=== PATIENT | male | born 1990 | race American Indian/Alaskan Native ===

== ENCOUNTER 2021-07-26 14:22 | Inpatient (IN) | payer SELFPAY ==
[2021-07-26] MEDS ORDERED: ACETAMINOPHEN 500 MG TAB PO ONE (15:49)
[2021-07-26] MEDS ORDERED: SODIUM CHLORIDE 0.9% 1000 ML 1,000 ML IV ONE (16:37)
--- NOTE | 2021-07-26 16:45 | Emergency Department Report ---
ED General Adult HPI - General Chief complaint: Nausea/Vomiting/Diarrhea Stated complaint: LOWER BACK PAIN/LACK OF ENERGY/NO APPETTITE Time Seen by Provider: 07/26/21 16:34 Source: patient Mode of arrival: Ambulatory Limitations: No Limitations - History of Present Illness Initial comments: 30-year-old -Malaysian male presents to the emergency room complaining of lower back pain sweats chills decreased appetite nausea but no vomiting since Saturday. Patient was unaware that he had a temperature of 103 that was noticed in triage. Patient denies any past medical history he is not up-to-date on any of his vaccines. Increase sleepiness and increased lack of energy. States he has been having increased urination. Denies any injury. Location: back (lower) Severity scale (0 -10): 6 Consistency: intermittent Associated Symptoms: fever/chills, loss of appetite, nausea/vomiting (No vomiting), weakness, other (Increased urination) Treatments Prior to Arrival: none - Related Data Previous Rx's Medication Instructions Recorded Last Taken Type Cyclobenzaprine [Flexeril] 10 mg PO TID PRN #15 tablet 07/15/15 Unknown Rx traMADoL [Ultram] 50 mg PO Q4HR PRN #20 tablet 07/15/15 Unknown Rx Allergies Allergy/AdvReac Type Severity Reaction Status Date / Time No Known Allergies Allergy Verified 07/26/21 15:44 ED Review of Systems ROS: Stated complaint: LOWER BACK PAIN/LACK OF ENERGY/NO APPETTITE Other details as noted in HPI Comment: All other systems reviewed and negative ED Past Medical Hx - Past Medical History Hx Hypertension: No - Social History Smoking Status: Never Smoker Substance Use Type: None - Medications Home Medications: Home Medications Medication Instructions Recorded Confirmed Last Taken Type Cyclobenzaprine [Flexeril] 10 mg PO TID PRN #15 tablet 07/15/15 Unknown Rx traMADoL [Ultram] 50 mg PO Q4HR PRN #20 tablet 07/15/15 Unknown Rx ED Physical Exam - General Limitations: No Limitations General appearance: alert, in no apparent distress - Head Head exam: Present: atraumatic, normocephalic - Eye Eye exam: Present: normal appearance - ENT ENT exam: Present: mucous membranes moist - Neck Neck exam: Present: normal inspection, full ROM - Respiratory Respiratory exam: Present: normal lung sounds bilaterally. Absent: respiratory distress - Cardiovascular Cardiovascular Exam: Present: tachycardia - GI/Abdominal GI/Abdominal exam: Present: soft. Absent: distended, tenderness - Extremities Exam Extremities exam: Present: normal inspection, full ROM - Back Exam Back exam: Present: full ROM - Neurological Exam Neurological exam: Present: alert, CN II-XII intact, normal gait - Psychiatric Psychiatric exam: Present: normal affect, normal mood - Skin Skin exam: Present: warm, dry, intact, normal color. Absent: rash ED Course Vital Signs 07/26/21 15:41 Temperature 103.0 F H Pulse Rate 122 H Respiratory 16 Rate Blood Pressure 134/86 [Right] O2 Sat by Pulse 100 Oximetry ED Medical Decision Making - Medical Decision Making 30-year-old -Malaysian male presents to the emergency room complaining of lower back pain sweats chills decreased appetite nausea but no vomiting since Saturday. Patient was unaware that he had a temperature of 103 that was noticed in triage. Patient denies any past medical history he is not up-to-date on any of his vaccines. Increase sleepiness and increased lack of energy. States he has been having increased urination. Denies any injury. Sepsis protocol has been initiated Critical care attestation.: If time is entered above; I have spent that time in minutes in the direct care of this critically ill patient, excluding procedure time. ED Disposition Condition: Stable
--- NOTE | 2021-07-26 17:08 | XRay Report ---
LUMBAR SPINE 3 VIEWS INDICATION / CLINICAL INFORMATION: lower back pain, fever. COMPARISON: None available. FINDINGS: BONES / JOINT(S): No acute fracture or subluxation. No other significant abnormality. SOFT TISSUES: No significant abnormality. ADDITIONAL FINDINGS: None. IMPRESSION: 1. No acute findings. Signer Name: Prabhu Junior MD Signed: 07/26/2021 5:04 PM Workstation Name: [id number]
--- NOTE | 2021-07-26 17:22 | Emergency Department Report ---
ED General Adult HPI - General Chief complaint: Nausea/Vomiting/Diarrhea Stated complaint: LOWER BACK PAIN/LACK OF ENERGY/NO APPETTITE Time Seen by Provider: 07/26/21 16:34 Source: patient Mode of arrival: Ambulatory Limitations: No Limitations - History of Present Illness Initial comments: patient presents with complaints of fever x 1 day. Endorses bilateral low back pain, mild cough, mild rhinorrhea, decreased appetite and fatigue. Denies nausea, vomiting, diarrhea, dysuria, frequency, urgency. Patient has a hx of nephrolithiasis and has never been diagnosed with urethral strictures. Location: back (lower) Severity scale (0 -10): 6 Associated Symptoms: fever/chills, loss of appetite, nausea/vomiting (No vomiting), weakness, other (Increased urination) Treatments Prior to Arrival: none - Related Data Previous Rx's Medication Instructions Recorded Last Taken Type Cyclobenzaprine [Flexeril] 10 mg PO TID PRN #15 tablet 07/15/15 Unknown Rx traMADoL [Ultram] 50 mg PO Q4HR PRN #20 tablet 07/15/15 Unknown Rx Allergies Allergy/AdvReac Type Severity Reaction Status Date / Time No Known Allergies Allergy Verified 07/26/21 15:44 ED Review of Systems ROS: Stated complaint: LOWER BACK PAIN/LACK OF ENERGY/NO APPETTITE Other details as noted in HPI Comment: All other systems reviewed and negative Skin: denies: rash Neurological: other (denies neck stiffness) ED Past Medical Hx - Past Medical History Hx Hypertension: No - Social History Smoking Status: Never Smoker Substance Use Type: None - Medications Home Medications: Home Medications Medication Instructions Recorded Confirmed Last Taken Type Cyclobenzaprine [Flexeril] 10 mg PO TID PRN #15 tablet 07/15/15 Unknown Rx traMADoL [Ultram] 50 mg PO Q4HR PRN #20 tablet 07/15/15 Unknown Rx ED Physical Exam - General Limitations: No Limitations General appearance: alert, in no apparent distress - Head Head exam: Present: atraumatic, normocephalic - Eye Eye exam: Present: PERRL, EOMI - ENT ENT exam: Present: mucous membranes moist, other (airway patent) - Neck Neck exam: Present: other (supple; no JVD) - Respiratory Respiratory exam: Present: other (good air entry, nml I:E CTAB, no use of ARAVIND) - Cardiovascular Cardiovascular Exam: Present: regular rate. Absent: rubs, gallop - GI/Abdominal GI/Abdominal exam: Present: other (soft; non tender; non distended; normal BS) - Extremities Exam Extremities exam: Present: full ROM. Absent: tenderness - Back Exam Back exam: Present: full ROM, CVA tenderness (R), CVA tenderness (L). Absent: vertebral tenderness - Neurological Exam Neurological exam: Present: alert, oriented X3, CN II-XII intact. Absent: motor sensory deficit - Skin Skin exam: Present: warm, normal color ED Course Vital Signs 07/26/21 07/26/21 07/26/21 15:41 19:25 21:26 Temperature 103.0 F H 100.6 F H Pulse Rate 122 H 116 H Respiratory 16 18 Rate Blood Pressure 134/86 142/87 [Right] O2 Sat by Pulse 100 100 Oximetry ED Medical Decision Making - Lab Data Result diagrams: 07/26/21 17:05 07/26/21 17:05 Laboratory Tests 07/26/21 07/26/21 07/26/21 17:05 17:05 17:05 WBC 20.2 H RBC 4.78 Hgb 14.4 Hct 43.0 MCV 90 MCH 30 MCHC 34 RDW 13.1 L Plt Count 246 Add Manual Diff Complete Total Counted 100 Seg Neuts % (Manual) 75.0 H Band Neutrophils % 0 Lymphocytes % (Manual) 10.0 L Reactive Lymphs % (Man) 0 Monocytes % (Manual) 15.0 H Eosinophils % (Manual) 0 Basophils % (Manual) 0 Metamyelocytes % 0 Myelocytes % 0 Promyelocytes % 0 Blast Cells % 0 Nucleated RBC % Not Reportable Seg Neutrophils # Man 15.2 H Band Neutrophils # 0.0 Lymphocytes # (Manual) 2.0 Abs React Lymphs (Man) 0.0 Monocytes # (Manual) 3.0 H Eosinophils # (Manual) 0.0 Basophils # (Manual) 0.0 Metamyelocytes # 0.0 Myelocytes # 0.0 Promyelocytes # 0.0 Blast Cells # 0.0 WBC Morphology Not Reportable Hypersegmented Neuts Not Reportable Hyposegmented Neuts Not Reportable Hypogranular Neuts Not Reportable Smudge Cells Not Reportable Toxic Granulation Not Reportable Toxic Vacuolation Not Reportable Dohle Bodies Not Reportable Pelger-Huet Anomaly Not Reportable Dinora Rods Not Reportable Platelet Estimate Not Reportable Clumped Platelets Not Reportable Plt Clumps, EDTA Not Reportable Large Platelets Not Reportable Giant Platelets Not Reportable Platelet Satelliting Not Reportable Plt Morphology Comment Not Reportable RBC Morphology Normal Dimorphic RBCs Not Reportable Polychromasia Not Reportable Hypochromasia Not Reportable Poikilocytosis Not Reportable Anisocytosis Not Reportable Microcytosis Not Reportable Macrocytosis Not Reportable Spherocytes Not Reportable Pappenheimer Bodies Not Reportable Sickle Cells Not Reportable Target Cells Not Reportable Tear Drop Cells Not Reportable Ovalocytes Not Reportable Helmet Cells Not Reportable Mcgraw-Duarte Bodies Not Reportable [place] Rings Not Reportable Avon Cells Not Reportable Bite Cells Not Reportable Crenated Cell Not Reportable Elliptocytes Not Reportable Acanthocytes (Spur) Not Reportable Rouleaux Not Reportable Hemoglobin C Crystals Not Reportable Schistocytes Not Reportable Malaria parasites Not Reportable Boyd Bodies Not Reportable Hem Pathologist Commnt No Sodium 129 L Potassium 3.8 Chloride 92.3 L Carbon Dioxide 22 Anion Gap 19 BUN 11 Creatinine 1.3 Estimated GFR > 60 BUN/Creatinine Ratio 8 Glucose 120 H Lactic Acid 1.50 Calcium 8.8 Total Bilirubin 0.60 AST 23 ALT 20 Alkaline Phosphatase 75 C-Reactive Protein 25.90 H Total Protein 7.1 Albumin 4.2 Albumin/Globulin Ratio 1.4 Urine Color Urine Turbidity Urine pH Ur Specific [place] Urine Protein Urine Glucose (UA) Urine Ketones Urine Blood Urine Nitrite Urine Bilirubin Urine Urobilinogen Ur Leukocyte Esterase Urine WBC (Auto) Urine RBC (Auto) U Epithel Cells (Auto) Urine Mucus 07/26/21 Unknown WBC RBC Hgb Hct MCV MCH MCHC RDW Plt Count Add Manual Diff Total Counted Seg Neuts % (Manual) Band Neutrophils % Lymphocytes % (Manual) Reactive Lymphs % (Man) Monocytes % (Manual) Eosinophils % (Manual) Basophils % (Manual) Metamyelocytes % Myelocytes % Promyelocytes % Blast Cells % Nucleated RBC % Seg Neutrophils # Man Band Neutrophils # Lymphocytes # (Manual) Abs React Lymphs (Man) Monocytes # (Manual) Eosinophils # (Manual) Basophils # (Manual) Metamyelocytes # Myelocytes # Promyelocytes # Blast Cells # WBC Morphology Hypersegmented Neuts Hyposegmented Neuts Hypogranular Neuts Smudge Cells Toxic Granulation Toxic Vacuolation Dohle Bodies Pelger-Huet Anomaly Dinora Rods Platelet Estimate Clumped Platelets Plt Clumps, EDTA Large Platelets Giant Platelets Platelet Satelliting Plt Morphology Comment RBC Morphology Dimorphic RBCs Polychromasia Hypochromasia Poikilocytosis Anisocytosis Microcytosis Macrocytosis Spherocytes Pappenheimer Bodies Sickle Cells Target Cells Tear Drop Cells Ovalocytes Helmet Cells Mcgraw-Duarte Bodies [place] Rings Julita Cells Bite Cells Crenated Cell Elliptocytes Acanthocytes (Spur) Rouleaux Hemoglobin C Crystals Schistocytes Malaria parasites Boyd Bodies Hem Pathologist Commnt Sodium Potassium Chloride Carbon Dioxide Anion Gap BUN Creatinine Estimated GFR BUN/Creatinine Ratio Glucose Lactic Acid Calcium Total Bilirubin AST ALT Alkaline Phosphatase C-Reactive Protein Total Protein Albumin Albumin/Globulin Ratio Urine Color Yellow Urine Turbidity Slightly-cloudy Urine pH 7.0 Ur Specific [place] 1.004 Urine Protein 30 mg/dl Urine Glucose (UA) Neg Urine Ketones Neg Urine Blood Sm Urine Nitrite Neg Urine Bilirubin Neg Urine Urobilinogen < 2.0 Ur Leukocyte Esterase Lg Urine WBC (Auto) 153.0 H Urine RBC (Auto) 2.0 U Epithel Cells (Auto) 1.[address] abd/pelvis: bilateral hydroureteronephrosis without a visible stone. - Medical Decision Making Diff dz: likely 2/2 sepsis from pyelonephritis most likely superimposed on a recently passed stone. Urethral stricture less likely. Received ceftriaxone 1g IV x 1, NS 1L bolus IV x 1, acetaminophen 1000 mg PO x 1. Dr. Wheatley (Urology) consulted. He recommends placing Casanova if patient is obstructed/with bladder distension. Patient has been voiding easily. Voided and PVR with bladder scan obtained to be 59 ml. Not retaining. Csaanova catheter NOT inserted. Critical care attestation.: If time is entered above; I have spent that time in minutes in the direct care of this critically ill patient, excluding procedure time. ED Disposition Clinical Impression: Pyelonephritis, Sepsis Disposition: ADMITTED INPATIENT Is pt being admited?: Yes Does the pt Need Aspirin: No Condition: Stable Time of Disposition: 19:55 (Patient admitted to Dr. Howell. Sign out was given by me to the admitting physician.)
[2021-07-26 17:27] LABS: Bilirubin,Urine NEG (Negative); Blood,Urine SM (Negative); Color,Urine Yellow (Yellow); Mucus,Urine FEW /HPF; Urobilinogen,Urine < 2.0 mg/dL (<2.0)
--- NOTE | 2021-07-26 17:35 | XRay Report ---
CHEST 1 VIEW 07/26/2021 5:16 PM INDICATION / CLINICAL INFORMATION: Fever. COMPARISON: None available. FINDINGS: SUPPORT DEVICES: None. HEART / MEDIASTINUM: The heart size and pulmonary vasculature are normal. LUNGS / PLEURA: No significant pulmonary or pleural abnormality. No pneumothorax. ADDITIONAL FINDINGS: No significant additional findings. IMPRESSION: No acute findings. No evidence of pneumonia. Signer Name: Jaspal Rome MD Signed: 07/26/2021 5:31 PM Workstation Name: [id number]
[2021-07-26 17:39] LABS: Hemoglobin 14.4 gm/dl (11.8-15.2); Mean Corpuscular HGB Conc 34 % (32-34); Mean Corpuscular Volume 90 fl (84-94); Platelet Count 246 K/mm3 (140-440); Red Blood Count 4.78 M/mm3 (3.65-5.03); Red Cell Distribution Width 13.1 % (13.2-15.2)
[2021-07-26 17:55] LABS: Alanine Aminotransferase 20 units/L (7-56); Albumin 4.2 g/dL (3.9-5); BUN/Creatinine Ratio 8; Blood Urea Nitrogen 11 mg/dL (9-20); Calcium 8.8 mg/dL (8.4-10.2); Hemolysis Index 16
--- NOTE | 2021-07-26 18:45 | Cat Scan Report ---
CT abdomen pelvis wo con INDICATION: flank pain. COMPARISON: None TECHNIQUE: Abdominal and pelvic CT exam performed. All CT scans at this location are performed using CT dose reduction for ALARA by means of automated exposure control. FINDINGS: CT ABDOMEN and PELVIS: Lung Bases: No significant abnormality. Liver: No significant abnormality. Biliary: No significant abnormality. Spleen: No significant abnormality. Pancreas: No significant abnormality. Adrenals: No significant abnormality. Kidneys: There is bilateral hydroureteronephrosis. No stones. Perinephric stranding is present. Lymph atics: No lymphadenopathy. Vasculature: No significant abnormality. Bowel: No significant abnormality. Pelvis: Small posterior right bladder diverticulum. No significant abnormality. Osseous Structures: No aggressive osseous lesion. Additional Findings: None IMPRESSION: 1. Bilateral hydroureteronephrosis and perinephric stranding. Findings are nonspecific and could be r elated to pyelonephritis. Correlate with urinalysis. Signer Name: Keagan Astudillo MD Signed: 07/26/2021 6:41 PM Workstation Name: [id number]
[2021-07-26] MEDS ORDERED: cefTRIAXone/NS 1 GM/50 ML 1 GM/50 ML BAG IV ONE (18:53)
[2021-07-26 18:56] LABS: Basophils % (Manual) 0 % (0.0-1.8); Eosinophils % (Manual) 0 % (0.0-4.3); RBC Morphology Normal; Total Cells Counted 100
[2021-07-26] MEDS ORDERED: ACETAMINOPHEN 325 MG TAB PO PRN (20:04)
[2021-07-26] MEDS ORDERED: ALBUTEROL 2.5 MG/3 ML NEBU IH PRN (20:04)
--- NOTE | 2021-07-26 20:09 | History and Physical Report ---
History of Present Illness Chief complaint: My back hurts and I have a fever History of present illness: 30 YO Male with Nephrolithiasis presents to ED for evaluation. Patient reports "my back hurts". Patient states that he has experienced sudden onset of lower back pain over the past 1 day with persistent symptoms over the same timeframe. Patient knowledges fever to 103 degrees Fahrenheit. Patient also acknowledges interruptions in urine stream. Patient transported to [facility] via private vehicle for further care and evaluation of the aforementioned symptoms. The patient was seen and evaluated in the emergency department. All lab and imaging studies reviewed. Patient found to have UTI complicated by sepsis. Patient underwent CT scan and was found to have evidence of pyelonephritis with hydronephrosis wi thout evidence of obstructing kidney stone. Urology team consulted in ED. Patient admitted to medical floor and initiated on sepsis protocol. Patient knowledges fever but denies chills, chest pain, palpitation, adductive cough, skin rash, recent contact, hematuria, no exposure to COVID-19. No prior admission for review. No medication listed at time of admission for reconciliation. Advanced care planning conducted in ED. Past History Past Medical History: other (Nephrolithiasis) Past Surgical History: No surgical history, Other (Reviewed) Social history: , lives with family Family history: no significant family history Medications and Allergies Allergies Allergy/AdvReac Type Severity Reaction Status Date / Time No Known Allergies Allergy Verified 07/26/21 15:44 Home Medications Medication Instructions Recorded Confirmed Last Taken Type Cyclobenzaprine [Flexeril] 10 mg PO TID PRN #15 tablet 07/15/15 Unknown Rx traMADoL [Ultram] 50 mg PO Q4HR PRN #20 tablet 07/15/15 Unknown Rx Active Meds: Active Medications Acetaminophen (Acetaminophen 325 Mg Tab) 650 mg PO Q4H PRN PRN Reason: Pain MILD(1-3)/Fever >100.5/ALATORRE Acetaminophen (Acetaminophen 325 Mg Tab) 650 mg PO Q6H PRN PRN Reason: Pain, Mild (1-3) Albuterol (Albuterol 2.5 Mg/3 Ml Nebu) 2.5 mg IH Q4HRT PRN PRN Reason: Shortness Of Breath Hydromorphone HCl (Hydromorphone 1 Mg/1 Ml Inj) 0.25 mg IV Q4H PRN PRN Reason: Pain, Moderate (4-6) Hydromorphone HCl (Hydromorphone 1 Mg/1 Ml Inj) 0.5 mg IV Q23H PRN PRN Reason: Pain , Severe (7-10) Cefepime HCl (Cefepime/Ns 2 Gm/100 Ml) 2 gm in 100 mls @ 200 mls/hr IV Q12H CJ; Protocol Ondansetron HCl (Ondansetron 4 Mg/2 Ml Inj) 4 mg IV Q8H PRN PRN Reason: Nausea And Vomiting Oxycodone/Acetaminophen (Oxycodone /Acetaminophen 5-325mg Tab) 1 tab PO Q6H PRN PRN Reason: Pain, Moderate (4-6) Sodium Chloride (Sodium Chloride 0.9% 10 Ml Flush Syringe) 10 ml IV BID CJ Sodium Chloride (Sodium Chloride 0.9% 10 Ml Flush Syringe) 10 ml IV PRN PRN PRN Reason: LINE FLUSH Sodium Chloride (Sodium Chloride 0.9% 1000 Ml Iv Soln) 2,310 ml 30 ml/kg (2310 ml) IV ONCE ONE Stop: 07/26/21 20:05 Review of Systems Constitutional: fever, no weight loss, no weight gain, no chills, no sweats Ears, nose, mouth and throat: no ear pain Cardiovascular: no chest pain, no orthopnea, no rapid/irregular heart beat, no edema Respiratory: no cough, no cough with sputum, no shortness of breath Gastrointestinal: nausea, no vomiting, no diarrhea, no constipation Genitourinary Male: flank pain, urinary frequency, urinary hesitancy Rectal: no pain, no incontinence, no bleeding Musculoskeletal: no neck stiffness, no neck pain, no low back pain Integumentary: no rash, no pruritis, no redness, no sores, no wounds, no boils Neurological: no head injury, no paralysis, no parathesias, no numbness, no seizures, no ataxia Psychiatric: no anxiety, no sleep disturbances, no insomnia, no hypersomnia, no change in appetite, no change in libido Endocrine: no cold intolerance, no polyphagia, no excessive thirst, no polyuria, no nocturia, no excessive sweating Hematologic/Lymphatic: no easy bruising, no easy bleeding Allergic/Immunologic: no urticaria, no allergic rhinitis Exam - Constitutional Vitals: Temp Pulse Resp BP Pulse Ox 100.6 F H 116 H 18 142/87 100 07/26/21 19:25 07/26/21 19:25 07/26/21 19:25 07/26/21 19:25 07/26/21 15:41 General appearance: Present: mild distress - EENT Eyes: Present: PERRL ENT: hearing intact, clear oral mucosa - Neck Neck: Present: supple, normal ROM - Respiratory Respiratory effort: normal Respiratory: bilateral: CTA - Cardiovascular Rhythm: other (Tachycardia) Heart Sounds: Present: S1 & S2. Absent: rub, click - Extremities Extremities: pulses symmetrical, No edema Peripheral Pulses: abnormal (Capillary refill greater than 3.5 seconds) - Abdominal General gastrointestinal: Present: soft, non-tender, non-distended, normal bowel sounds Male genitourinary: Present: normal - Integumentary Integumentary: Present: clear, warm, dry - Musculoskeletal Musculoskeletal: gait normal, strength equal bilaterally - Psychiatric Psychiatric: appropriate mood/affect, intact judgment & insight - Neurologic Neurologic: CNII-XII intact, moves all extremities Results - Labs CBC & Chem 7: 07/26/21 17:05 07/26/21 17:05 Labs: Abnormal lab results 07/26/21 07/26/21 07/26/21 Range/Units 17:05 17:05 Unknown WBC 20.2 H (4.5-11.0) K/mm3 RDW 13.1 L (13.2-15.2) % Seg Neuts % (Manual) 75.0 H (40.0-70.0) % Lymphocytes % (Manual) 10.0 L (13.4-35.0) % Monocytes % (Manual) 15.0 H (0.0-7.3) % Seg Neutrophils # Man 15.2 H (1.8-7.7) K/mm3 Monocytes # (Manual) 3.0 H (0.0-0.8) K/mm3 Sodium 129 L (137-145) mmol/L Chloride 92.3 L (98-107) mmol/L Glucose 120 H (75-100) mg/dL C-Reactive Protein 25.90 H (0.00-1.30) mg/dL Urine WBC (Auto) 153.0 H (0.0-6.0) /HPF Assessment and Plan - Patient Problems (1) Sepsis Current Visit: Yes Status: Acute Plan to address problem: Sepsis protocol: CBC, CMP, urinalysis, chest x-ray, IV antibiotic therapy, IV fluid resuscitation therapy, maintain mean arterial pressure greater than or equal 65, serial lactic acid level, blood culture. (2) Nephrolithiasis Current Visit: Yes Status: Acute Plan to address problem: Supportive care, outpatient urology follow-up. Pain control. (3) Hydronephrosis Current Visit: Yes Status: Acute Plan to address problem: Without evidence of urinary obstruction. Bladder scan, Casanova catheter if patient has bladder dilatation, urology team consulted in ED. (4) Pyelonephritis Current Visit: Yes Status: Acute Plan to address problem: CT scan abdomen pelvis, IV antibiotic therapy, supportive care. (5) DVT prophylaxis Current Visit: Yes Status: Acute Plan to address problem: SCD to bilateral lower extremities while in bed (6) Advance care planning Current Visit: Yes Status: Acute Plan to address problem: Disease education data, care plan discussed, diagnoses discussed, prognosis discussed, patient is full code. Patient and acknowledged understanding and agreement with care plan. +30 minutes. (7) Preventative health care Current Visit: Yes Status: Acute Plan to address problem: Patient counseled regarding outpatient urology follow-up, as well as risk factor avoidance, and dietary restrictions to lower risk of kidney stone development. +15 minutes.
[2021-07-26] MEDS ORDERED: SODIUM CHLORIDE 0.9% 1000 ML IV SOLN IV ONE (20:30)
[2021-07-26] MEDS: CEFEPIME/NS 2 GM/100 ML 2 GM/100 ML BAG IV SCH (22:57)
[2021-07-26] MEDS: ACETAMINOPHEN 325 MG TAB PO PRN (23:10)
[2021-07-27] MEDS: SODIUM CHLORIDE 0.9% 1000 ML 1,000 ML IV SCH ×3 (05:42→22:37)
[2021-07-27] MEDS: ACETAMINOPHEN 325 MG TAB PO PRN ×4 (05:42→22:37)
[2021-07-27 06:59] LABS: Basophils % (Auto) 0.1 % (0.0-1.8); Hematocrit 39.6 % (35.5-45.6); Hemoglobin 13.2 gm/dl (11.8-15.2); Lymphocytes # (Auto) 0.9 K/mm3 (1.2-5.4); Lymphocytes % (Auto) 4.8 % (13.4-35.0); Mean Corpuscular HGB Conc 33 % (32-34); Mean Corpuscular Volume 90 fl (84-94); Monocytes # (Auto) 2.4 K/mm3 (0.0-0.8); Monocytes % (Auto) 12.3 % (0.0-7.3); Platelet Count 209 K/mm3 (140-440)
[2021-07-27 07:46] LABS: BUN/Creatinine Ratio 8; Blood Urea Nitrogen 11 mg/dL (9-20); Calcium 8.4 mg/dL (8.4-10.2); Hemolysis Index 6
[2021-07-27] MEDS: CEFEPIME/NS 2 GM/100 ML 2 GM/100 ML BAG IV SCH ×2 (09:55→21:06)
[2021-07-27] MEDS: ONDANSETRON 4 MG/2 ML INJ IV PRN ×2 (10:02→22:41)
--- NOTE | 2021-07-27 11:04 | Progress Note ---
Assessment and Plan Assessment and plan: Sepsis. Patient meets criteria given the leukocytosis, fever and diagnosis of pyelonephritis UTI/pyelonephritis nephrolithiasis Bilateral hydroureteronephrosis Acute kidney injury Obstructive uropathy 07/27/2021. CT scan reveals bilateral hydroureteronephrosis and perinephric stranding. Urinalysis reveals 153 WBCs. We will follow-up blood and urine cultures. Await urology consultation. Continue IV antibiotics. Patient has a slight elevation of creatinine to 1.4. Continue to monitor BMP closely History Interval history: No new issues overnight. Patient complains of diarrhea and left flank pain Hospitalist Physical - Constitutional Vitals: Temp Pulse Resp BP Pulse Ox 103.0 F H 124 H 20 126/77 98 07/27/21 05:15 07/27/21 05:15 07/27/21 05:42 07/27/21 05:15 07/27/21 05:15 General appearance: Present: no acute distress - EENT Eyes: Present: PERRL, EOM intact ENT: hearing intact, clear oral mucosa, dentition normal - Neck Neck: Present: supple, normal ROM - Respiratory Respiratory effort: normal Respiratory: bilateral: CTA - Cardiovascular Rhythm: regular Heart Sounds: Present: S1 & S2. Absent: gallop, rub - Extremities Extremities: no ischemia, No edema, Full ROM - Abdominal General gastrointestinal: soft, non-tender, non-distended, normal bowel sounds - Integumentary Integumentary: Present: clear, warm, dry - Neurologic Neurologic: CNII-XII intact, moves all extremities Results - Labs CBC & Chem 7: 07/27/21 06:12 07/27/21 06:12 Labs: Laboratory Last Values WBC 19.3 K/mm3 (4.5-11.0) H 07/27/21 06:12 RBC 4.40 M/mm3 (3.65-5.03) 07/27/21 06:12 Hgb 13.2 gm/dl (11.8-15.2) 07/27/21 06:12 Hct 39.6 % (35.5-45.6) 07/27/21 06:12 MCV 90 fl (84-94) 07/27/21 06:12 MCH 30 pg (28-32) 07/27/21 06:12 MCHC 33 % (32-34) 07/27/21 06:12 RDW 13.0 % (13.2-15.2) L 07/27/21 06:12 Plt Count 209 K/mm3 (140-440) 07/27/21 06:12 Lymph % (Auto) 4.8 % (13.4-35.0) L 07/27/21 06:12 [place] % (Auto) 12.3 % (0.0-7.3) H 07/27/21 06:12 Eos % (Auto) 0.0 % (0.0-4.3) 07/27/21 06:12 Baso % (Auto) 0.1 % (0.0-1.8) 07/27/21 06:12 Lymph # (Auto) 0.9 K/mm3 (1.2-5.4) L 07/27/21 06:12 [place] # (Auto) 2.4 K/mm3 (0.0-0.8) H 07/27/21 06:12 Eos # (Auto) 0.0 K/mm3 (0.0-0.4) 07/27/21 06:12 Baso # (Auto) 0.0 K/mm3 (0.0-0.1) 07/27/21 06:12 Add Manual Diff Complete 07/26/21 17:05 Total Counted 100 07/26/21 17:05 Seg Neutrophils % 82.8 % (40.0-70.0) H 07/27/21 06:12 Seg Neuts % (Manual) 75.0 % (40.0-70.0) H 07/26/21 17:05 Band Neutrophils % 0 % 07/26/21 17:05 Lymphocytes % (Manual) 10.0 % (13.4-35.0) L 07/26/21 17:05 Reactive Lymphs % (Man) 0 % 07/26/21 17:05 Monocytes % (Manual) 15.0 % (0.0-7.3) H 07/26/21 17:05 Eosinophils % (Manual) 0 % (0.0-4.3) 07/26/21 17:05 Basophils % (Manual) 0 % (0.0-1.8) 07/26/21 17:05 Metamyelocytes % 0 % 07/26/21 17:05 Myelocytes % 0 % 07/26/21 17:05 Promyelocytes % 0 % 07/26/21 17:05 Blast Cells % 0 % 07/26/21 17:05 Nucleated RBC % Not Reportable 07/26/21 17:05 Seg Neutrophils # 16.0 K/mm3 (1.8-7.7) H 07/27/21 06:12 Seg Neutrophils # Man 15.2 K/mm3 (1.8-7.7) H 07/26/21 17:05 Band Neutrophils # 0.0 K/mm3 07/26/21 17:05 Lymphocytes # (Manual) 2.0 K/mm3 (1.2-5.4) 07/26/21 17:05 Abs React Lymphs (Man) 0.0 K/mm3 07/26/21 17:05 Monocytes # (Manual) 3.0 K/mm3 (0.0-0.8) H 07/26/21 17:05 Eosinophils # (Manual) 0.0 K/mm3 (0.0-0.4) 07/26/21 17:05 Basophils # (Manual) 0.0 K/mm3 (0.0-0.1) 07/26/21 17:05 Metamyelocytes # 0.0 K/mm3 07/26/21 17:05 Myelocytes # 0.0 K/mm3 07/26/21 17:05 Promyelocytes # 0.0 K/mm3 07/26/21 17:05 Blast Cells # 0.0 K/mm3 07/26/21 17:05 WBC Morphology Not Reportable 07/26/21 17:05 Hypersegmented Neuts Not Reportable 07/26/21 17:05 Hyposegmented Neuts Not Reportable 07/26/21 17:05 Hypogranular Neuts Not Reportable 07/26/21 17:05 Smudge Cells Not Reportable 07/26/21 17:05 Toxic Granulation Not Reportable 07/26/21 17:05 Toxic Vacuolation Not Reportable 07/26/21 17:05 Dohle Bodies Not Reportable 07/26/21 17:05 Pelger-Huet Anomaly Not Reportable 07/26/21 17:05 Dinora Rods Not Reportable 07/26/21 17:05 Platelet Estimate Not Reportable 07/26/21 17:05 Clumped Platelets Not Reportable 07/26/21 17:05 Plt Clumps, EDTA Not Reportable 07/26/21 17:05 Large Platelets Not Reportable 07/26/21 17:05 Giant Platelets Not Reportable 07/26/21 17:05 Platelet Satelliting Not Reportable 07/26/21 17:05 Plt Morphology Comment Not Reportable 07/26/21 17:05 RBC Morphology Normal 07/26/21 17:05 Dimorphic RBCs Not Reportable 07/26/21 17:05 Polychromasia Not Reportable 07/26/21 17:05 Hypochromasia Not Reportable 07/26/21 17:05 Poikilocytosis Not Reportable 07/26/21 17:05 Anisocytosis Not Reportable 07/26/21 17:05 Microcytosis Not Reportable 07/26/21 17:05 Macrocytosis Not Reportable 07/26/21 17:05 Spherocytes Not Reportable 07/26/21 17:05 Pappenheimer Bodies Not Reportable 07/26/21 17:05 Sickle Cells Not Reportable 07/26/21 17:05 Target Cells Not Reportable 07/26/21 17:05 Tear Drop Cells Not Reportable 07/26/21 17:05 Ovalocytes Not Reportable 07/26/21 17:05 Helmet Cells Not Reportable 07/26/21 17:05 Mcgraw-[place] Bodies Not Reportable 07/26/21 17:05 [place] Rings Not Reportable 07/26/21 17:05 [place] Cells Not Reportable 07/26/21 17:05 Bite Cells Not Reportable 07/26/21 17:05 Crenated Cell Not Reportable 07/26/21 17:05 Elliptocytes Not Reportable 07/26/21 17:05 Acanthocytes (Spur) Not Reportable 07/26/21 17:05 Rouleaux Not Reportable 07/26/21 17:05 Hemoglobin C Crystals Not Reportable 07/26/21 17:05 Schistocytes Not Reportable 07/26/21 17:05 Malaria parasites Not Reportable 07/26/21 17:05 Boyd Bodies Not Reportable 07/26/21 17:05 Hem Pathologist Commnt No 07/26/21 17:05 Sodium 135 mmol/L (137-145) L 07/27/21 06:12 Potassium 3.4 mmol/L (3.6-5.0) L 07/27/21 06:12 Chloride 97.9 mmol/L (98-107) L 07/27/21 06:12 Carbon Dioxide 23 mmol/L (22-30) 07/27/21 06:12 Anion Gap 18 mmol/L 07/27/21 06:12 BUN 11 mg/dL (9-20) 07/27/21 06:12 Creatinine 1.4 mg/dL (0.8-1.3) H 07/27/21 06:12 Estimated GFR > 60 ml/min 07/27/21 06:12 BUN/Creatinine Ratio 8 % 07/27/21 06:12 Glucose 104 mg/dL (75-100) H 07/27/21 06:12 Lactic Acid 1.40 mmol/L (0.7-2.0) 07/27/21 01:53 Calcium 8.4 mg/dL (8.4-10.2) 07/27/21 06:12 Total Bilirubin 0.60 mg/dL (0.1-1.2) 07/26/21 17:05 AST 23 units/L (5-40) 07/26/21 17:05 ALT 20 units/L (7-56) 07/26/21 17:05 Alkaline Phosphatase 75 units/L (35-129) 07/26/21 17:05 C-Reactive Protein 25.90 mg/dL (0.00-1.30) H 07/26/21 17:05 Total Protein 7.1 g/dL (6.3-8.2) 07/26/21 17:05 Albumin 4.2 g/dL (3.9-5) 07/26/21 17:05 Albumin/Globulin Ratio 1.4 % 07/26/21 17:05 Urine Color Yellow (Yellow) 07/26/21 Unknown Urine Turbidity Slightly-cloudy (Clear) 07/26/21 Unknown Urine pH 7.0 (5.0-7.0) 07/26/21 Unknown Ur Specific [place] 1.004 (1.003-1.030) 07/26/21 Unknown Urine Protein 30 mg/dl mg/dL (Negative) 07/26/21 Unknown Urine Glucose (UA) Neg mg/dL (Negative) 07/26/21 Unknown Urine Ketones Neg mg/dL (Negative) 07/26/21 Unknown Urine Blood Sm (Negative) 07/26/21 Unknown Urine Nitrite Neg (Negative) 07/26/21 Unknown Urine Bilirubin Neg (Negative) 07/26/21 Unknown Urine Urobilinogen < 2.0 mg/dL (<2.0) 07/26/21 Unknown Ur Leukocyte Esterase Lg (Negative) 07/26/21 Unknown Urine WBC (Auto) 153.0 /HPF (0.0-6.0) H 07/26/21 Unknown Urine RBC (Auto) 2.0 /HPF (0.0-6.0) 07/26/21 Unknown U Epithel Cells (Auto) 1.0 /HPF (0-13.0) 07/26/21 Unknown Urine Mucus Few /HPF 07/26/21 Unknown Blood Type A POSITIVE 07/26/21 20:20 Antibody Screen Negative 07/26/21 20:20 Microbiology: Microbiology 07/26/21 17:05 Peripheral/Venous Blood Culture - Preliminary Culture in Progress 07/26/21 17:20 Peripheral/Venous Blood Culture - Preliminary Culture in Progress Casanova/IV: Voiding Method Toilet Active Medications - Current Medications Current Medications: Generic Name Dose Route Start Last Admin Trade Name Freq PRN Reason Stop Dose Admin Acetaminophen 650 mg 07/26/21 20:04 07/27/21 10:46 Acetaminophen 325 Mg Tab PO 650 mg Q4H PRN Administration Pain MILD(1-3)/Fever >100.5/ALATORRE Albuterol 2.5 mg 07/26/21 20:04 Albuterol 2.5 Mg/3 Ml Nebu IH Q4HRT PRN Shortness Of Breath Hydromorphone HCl 0.25 mg 07/26/21 20:04 Hydromorphone 1 Mg/1 Ml Inj IV Q4H PRN Pain, Moderate (4-6) Hydromorphone HCl 0.5 mg 07/26/21 20:04 Hydromorphone 1 Mg/1 Ml Inj IV Q23H PRN Pain , Severe (7-10) Cefepime HCl 2 gm in 100 mls @ 200 mls/hr 07/26/21 22:00 07/27/21 09:55 Cefepime/Ns 2 Gm/100 Ml IV 200 mls/hr Q12H CJ Administration Protocol Sodium Chloride 1,000 mls @ 135 mls/hr 07/26/21 20:15 07/27/21 05:42 Nacl 0.9% 1000 Ml IV 135 mls/hr DIRECT CJ Administration Ondansetron HCl 4 mg 07/26/21 20:04 07/27/21 10:02 Ondansetron 4 Mg/2 Ml Inj IV 4 mg Q8H PRN Administration Nausea And Vomiting Oxycodone/Acetaminophen 1 tab 07/26/21 20:04 Oxycodone /Acetaminophen 5-325mg Tab PO Q6H PRN Pain, Moderate (4-6) Sodium Chloride 10 ml 07/26/21 22:00 07/27/21 09:55 Sodium Chloride 0.9% 10 Ml Flush Syringe IV 10 ml BID CJ Administration Sodium Chloride 10 ml 07/26/21 20:04 Sodium Chloride 0.9% 10 Ml Flush Syringe IV PRN PRN LINE FLUSH
--- NOTE | 2021-07-27 12:02 | Progress Note ---
Assessment and Plan bilat hydro no obst stones no yang creat 1.3 offered cath voiding welll ?? reflux needs w/u iv abs Subjective Date of service: 07/27/21 Principal diagnosis: uti Objective - Constitutional Vitals: Vital Signs - 12hr 07/27/21 07/27/21 07/27/21 05:15 05:42 10:42 Temperature 103.0 F H 102.9 F H Pulse Rate 124 H 127 H Respiratory 18 20 20 Rate Blood Pressure 126/77 113/66 O2 Sat by Pulse 98 99 Oximetry General appearance: Present: no acute distress - Neck Neck: supple - Respiratory Respiratory effort: normal Extremities: no ischemia - Gastrointestinal General gastrointestinal: Present: soft, non-tender Rectal Exam: normal rectal tone - Labs CBC & Chem 7: 07/27/21 06:12 07/27/21 06:12 Labs: Abnormal lab results 07/26/21 07/26/21 07/26/21 Range/Units 17:05 17:05 Unknown WBC 20.2 H (4.5-11.0) K/mm3 RDW 13.1 L (13.2-15.2) % Lymph % (Auto) (13.4-35.0) % [place] % (Auto) (0.0-7.3) % Lymph # (Auto) (1.2-5.4) K/mm3 [place] # (Auto) (0.0-0.8) K/mm3 Seg Neutrophils % (40.0-70.0) % Seg Neuts % (Manual) 75.0 H (40.0-70.0) % Lymphocytes % (Manual) 10.0 L (13.4-35.0) % Monocytes % (Manual) 15.0 H (0.0-7.3) % Seg Neutrophils # (1.8-7.7) K/mm3 Seg Neutrophils # Man 15.2 H (1.8-7.7) K/mm3 Monocytes # (Manual) 3.0 H (0.0-0.8) K/mm3 Sodium 129 L (137-145) mmol/L Potassium (3.6-5.0) mmol/L Chloride 92.3 L (98-107) mmol/L Creatinine (0.8-1.3) mg/dL Glucose 120 H (75-100) mg/dL C-Reactive Protein 25.90 H (0.00-1.30) mg/dL Urine WBC (Auto) 153.0 H (0.0-6.0) /HPF 07/27/21 07/27/21 Range/Units 06:12 06:12 WBC 19.3 H (4.5-11.0) K/mm3 RDW 13.0 L (13.2-15.2) % Lymph % (Auto) 4.8 L (13.4-35.0) % [place] % (Auto) 12.3 H (0.0-7.3) % Lymph # (Auto) 0.9 L (1.2-5.4) K/mm3 [place] # (Auto) 2.4 H (0.0-0.8) K/mm3 Seg Neutrophils % 82.8 H (40.0-70.0) % Seg Neuts % (Manual) (40.0-70.0) % Lymphocytes % (Manual) (13.4-35.0) % Monocytes % (Manual) (0.0-7.3) % Seg Neutrophils # 16.0 H (1.8-7.7) K/mm3 Seg Neutrophils # Man (1.8-7.7) K/mm3 Monocytes # (Manual) (0.0-0.8) K/mm3 Sodium 135 L (137-145) mmol/L Potassium 3.4 L (3.6-5.0) mmol/L Chloride 97.9 L (98-107) mmol/L Creatinine 1.4 H (0.8-1.3) mg/dL Glucose 104 H (75-100) mg/dL C-Reactive Protein (0.00-1.30) mg/dL Urine WBC (Auto) (0.0-6.0) /HPF Medications & Allergies - Medications Allergies/Adverse Reactions: Allergies No Known Allergies Allergy (Verified 07/26/21 15:44) Home Medications: Home Medications Medication Instructions Recorded Confirmed Last Taken Type Cyclobenzaprine [Flexeril] 10 mg PO TID PRN #15 tablet 07/15/15 07/26/21 Unknown Rx traMADoL [Ultram] 50 mg PO Q4HR PRN #20 tablet 07/15/15 07/26/21 Unknown Rx Active Medications: Generic Name Dose Route Start Last Admin Trade Name Freq PRN Reason Stop Dose Admin Acetaminophen 650 mg 05/11/22 20:04 07/27/21 10:46 Acetaminophen 325 Mg Tab PO 650 mg Q4H PRN Administration Pain MILD(1-3)/Fever >100.5/ALATORRE Albuterol 2.5 mg 07/26/21 20:04 Albuterol 2.5 Mg/3 Ml Nebu IH Q4HRT PRN Shortness Of Breath Hydromorphone HCl 0.25 mg 07/26/21 20:04 Hydromorphone 1 Mg/1 Ml Inj IV Q4H PRN Pain, Moderate (4-6) Hydromorphone HCl 0.5 mg 07/26/21 20:04 Hydromorphone 1 Mg/1 Ml Inj IV Q23H PRN Pain , Severe (7-10) Cefepime HCl 2 gm in 100 mls @ 200 mls/hr 07/26/21 22:00 07/27/21 09:55 Cefepime/Ns 2 Gm/100 Ml IV 200 mls/hr Q12H CJ Administration Protocol Sodium Chloride 1,000 mls @ 135 mls/hr 07/26/21 20:15 07/27/21 05:42 Nacl 0.9% 1000 Ml IV 135 mls/hr DIRECT CJ Administration Ondansetron HCl 4 mg 07/26/21 20:04 07/27/21 10:02 Ondansetron 4 Mg/2 Ml Inj IV 4 mg Q8H PRN Administration Nausea And Vomiting Oxycodone/Acetaminophen 1 tab 07/26/21 20:04 Oxycodone /Acetaminophen 5-325mg Tab PO Q6H PRN Pain, Moderate (4-6) Sodium Chloride 10 ml 07/26/21 22:00 07/27/21 09:55 Sodium Chloride 0.9% 10 Ml Flush Syringe IV 10 ml BID CJ Administration Sodium Chloride 10 ml 07/26/21 20:04 Sodium Chloride 0.9% 10 Ml Flush Syringe IV PRN PRN LINE FLUSH
--- NOTE | 2021-07-27 22:53 | Consultation ---
DATE OF CONSULTATION: 07/27/2021 REASON FOR CONSULTATION: This is a urological consultation for a urinary tract infection. HISTORY OF PRESENT ILLNESS: This is a 30-year-old gentleman we were called yesterday who had fevers and chills to 103. He had bilateral hydronephrosis. Creatinine is 1.3-1.4 with mostly left flank pain. CT scan showed no obstruction from a stone with some perinephric stranding. He denies IV drugs or alcoholism. No infections or manipulation as a child. PAST MEDICAL HISTORY: Basically unremarkable. PAST SURGICAL HISTORY: No surgery. FAMILY HISTORY: Noncontributory. ALLERGIES: Negative. MEDICATIONS: None regularly. PHYSICAL EXAMINATION: GENERAL: On exam, he is awake. He is in no distress. He has a fever. ABDOMEN: Soft, nondistended. There is no suprapubic distention. IMPRESSION AND PLAN: Bilateral hydronephrosis. Creatinine is basically normal with a fever of 103. He may need a catheter. He may need a cystogram, but right now he is febrile. He is responding to antibiotics. We will monitor his white count and should he needs a catheter, I told him he may need one, but right now he is voiding with a good flow with no discomfort. TID: [id number] RECEIPT: [id number] PAULY
[2021-07-28] MEDS: SODIUM CHLORIDE 0.9% 1000 ML 1,000 ML IV SCH ×2 (06:01→16:50)
[2021-07-28] MEDS: ACETAMINOPHEN 325 MG TAB PO PRN ×3 (06:06→21:01)
--- NOTE | 2021-07-28 07:58 | Progress Note ---
Assessment and Plan Assessment and plan: Sepsis. Patient meets criteria given the leukocytosis, fever and diagnosis of pyelonephritis UTI/pyelonephritis nephrolithiasis Bilateral hydroureteronephrosis Acute kidney injury Obstructive uropathy 07/27/2021. CT scan reveals bilateral hydroureteronephrosis and perinephric stranding. Urinalysis reveals 153 WBCs. We will follow-up blood and urine cultures. Await urology consultation. Continue IV antibiotics. Patient has a slight elevation of creatinine to 1.4. Continue to monitor BMP closely 07/28/2021. Urology reports patient may have vesicoureteral reflux. Patient currently voiding well without Casanova. Continue IV antibiotics. Patient still with fever spike. We will consult ID for further evaluation. Follow-up blood and urine cultures History Interval history: No new issues overnight. Hospitalist Physical - Constitutional Vitals: Temp Pulse Resp BP Pulse Ox 100.3 F H 99 H 20 135/97 100 07/28/21 04:44 07/28/21 04:44 07/28/21 06:06 07/28/21 04:44 07/28/21 04:44 General appearance: Present: no acute distress - EENT Eyes: Present: PERRL, EOM intact ENT: hearing intact, clear oral mucosa, dentition normal - Neck Neck: Present: supple, normal ROM - Respiratory Respiratory effort: normal Respiratory: bilateral: CTA - Cardiovascular Rhythm: regular Heart Sounds: Present: S1 & S2. Absent: gallop, rub - Extremities Extremities: no ischemia, No edema, Full ROM - Abdominal General gastrointestinal: soft, non-tender, non-distended, normal bowel sounds - Integumentary Integumentary: Present: clear, warm, dry - Neurologic Neurologic: CNII-XII intact, moves all extremities Results - Labs CBC & Chem 7: 07/27/21 06:12 07/27/21 06:12 Labs: Laboratory Last Values WBC 19.3 K/mm3 (4.5-11.0) H 07/27/21 06:12 RBC 4.40 M/mm3 (3.65-5.03) 07/27/21 06:12 Hgb 13.2 gm/dl (11.8-15.2) 07/27/21 06:12 Hct 39.6 % (35.5-45.6) 07/27/21 06:12 MCV 90 fl (84-94) 07/27/21 06:12 MCH 30 pg (28-32) 07/27/21 06:12 MCHC 33 % (32-34) 07/27/21 06:12 RDW 13.0 % (13.2-15.2) L 07/27/21 06:12 Plt Count 209 K/mm3 (140-440) 07/27/21 06:12 Lymph % (Auto) 4.8 % (13.4-35.0) L 07/27/21 06:12 [place] % (Auto) 12.3 % (0.0-7.3) H 07/27/21 06:12 Eos % (Auto) 0.0 % (0.0-4.3) 07/27/21 06:12 Baso % (Auto) 0.1 % (0.0-1.8) 07/27/21 06:12 Lymph # (Auto) 0.9 K/mm3 (1.2-5.4) L 07/27/21 06:12 [place] # (Auto) 2.4 K/mm3 (0.0-0.8) H 07/27/21 06:12 Eos # (Auto) 0.0 K/mm3 (0.0-0.4) 07/27/21 06:12 Baso # (Auto) 0.0 K/mm3 (0.0-0.1) 07/27/21 06:12 Add Manual Diff Complete 07/26/21 17:05 Total Counted 100 07/26/21 17:05 Seg Neutrophils % 82.8 % (40.0-70.0) H 07/27/21 06:12 Seg Neuts % (Manual) 75.0 % (40.0-70.0) H 07/26/21 17:05 Band Neutrophils % 0 % 07/26/21 17:05 Lymphocytes % (Manual) 10.0 % (13.4-35.0) L 07/26/21 17:05 Reactive Lymphs % (Man) 0 % 07/26/21 17:05 Monocytes % (Manual) 15.0 % (0.0-7.3) H 07/26/21 17:05 Eosinophils % (Manual) 0 % (0.0-4.3) 07/26/21 17:05 Basophils % (Manual) 0 % (0.0-1.8) 07/26/21 17:05 Metamyelocytes % 0 % 07/26/21 17:05 Myelocytes % 0 % 07/26/21 17:05 Promyelocytes % 0 % 07/26/21 17:05 Blast Cells % 0 % 07/26/21 17:05 Nucleated RBC % Not Reportable 07/26/21 17:05 Seg Neutrophils # 16.0 K/mm3 (1.8-7.7) H 07/27/21 06:12 Seg Neutrophils # Man 15.2 K/mm3 (1.8-7.7) H 07/26/21 17:05 Band Neutrophils # 0.0 K/mm3 07/26/21 17:05 Lymphocytes # (Manual) 2.0 K/mm3 (1.2-5.4) 07/26/21 17:05 Abs React Lymphs (Man) 0.0 K/mm3 07/26/21 17:05 Monocytes # (Manual) 3.0 K/mm3 (0.0-0.8) H 07/26/21 17:05 Eosinophils # (Manual) 0.0 K/mm3 (0.0-0.4) 07/26/21 17:05 Basophils # (Manual) 0.0 K/mm3 (0.0-0.1) 07/26/21 17:05 Metamyelocytes # 0.0 K/mm3 07/26/21 17:05 Myelocytes # 0.0 K/mm3 07/26/21 17:05 Promyelocytes # 0.0 K/mm3 07/26/21 17:05 Blast Cells # 0.0 K/mm3 07/26/21 17:05 WBC Morphology Not Reportable 07/26/21 17:05 Hypersegmented Neuts Not Reportable 07/26/21 17:05 Hyposegmented Neuts Not Reportable 07/26/21 17:05 Hypogranular Neuts Not Reportable 07/26/21 17:05 Smudge Cells Not Reportable 07/26/21 17:05 Toxic Granulation Not Reportable 07/26/21 17:05 Toxic Vacuolation Not Reportable 07/26/21 17:05 Dohle Bodies Not Reportable 07/26/21 17:05 Pelger-Huet Anomaly Not Reportable 07/26/21 17:05 Dinora Rods Not Reportable 07/26/21 17:05 Platelet Estimate Not Reportable 07/26/21 17:05 Clumped Platelets Not Reportable 07/26/21 17:05 Plt Clumps, EDTA Not Reportable 07/26/21 17:05 Large Platelets Not Reportable 07/26/21 17:05 Giant Platelets Not Reportable 07/26/21 17:05 Platelet Satelliting Not Reportable 07/26/21 17:05 Plt Morphology Comment Not Reportable 07/26/21 17:05 RBC Morphology Normal 07/26/21 17:05 Dimorphic RBCs Not Reportable 07/26/21 17:05 Polychromasia Not Reportable 07/26/21 17:05 Hypochromasia Not Reportable 07/26/21 17:05 Poikilocytosis Not Reportable 07/26/21 17:05 Anisocytosis Not Reportable 07/26/21 17:05 Microcytosis Not Reportable 07/26/21 17:05 Macrocytosis Not Reportable 07/26/21 17:05 Spherocytes Not Reportable 07/26/21 17:05 Pappenheimer Bodies Not Reportable 07/26/21 17:05 Sickle Cells Not Reportable 07/26/21 17:05 Target Cells Not Reportable 07/26/21 17:05 Tear Drop Cells Not Reportable 07/26/21 17:05 Ovalocytes Not Reportable 07/26/21 17:05 Helmet Cells Not Reportable 07/26/21 17:05 Mcgraw-[place] Bodies Not Reportable 07/26/21 17:05 [place] Rings Not Reportable 07/26/21 17:05 [place] Cells Not Reportable 07/26/21 17:05 Bite Cells Not Reportable 07/26/21 17:05 Crenated Cell Not Reportable 07/26/21 17:05 Elliptocytes Not Reportable 07/26/21 17:05 Acanthocytes (Spur) Not Reportable 07/26/21 17:05 Rouleaux Not Reportable 07/26/21 17:05 Hemoglobin C Crystals Not Reportable 07/26/21 17:05 Schistocytes Not Reportable 07/26/21 17:05 Malaria parasites Not Reportable 07/26/21 17:05 Boyd Bodies Not Reportable 07/26/21 17:05 Hem Pathologist Commnt No 07/26/21 17:05 Sodium 135 mmol/L (137-145) L 07/27/21 06:12 Potassium 3.4 mmol/L (3.6-5.0) L 07/27/21 06:12 Chloride 97.9 mmol/L (98-107) L 07/27/21 06:12 Carbon Dioxide 23 mmol/L (22-30) 07/27/21 06:12 Anion Gap 18 mmol/L 07/27/21 06:12 BUN 11 mg/dL (9-20) 07/27/21 06:12 Creatinine 1.4 mg/dL (0.8-1.3) H 07/27/21 06:12 Estimated GFR > 60 ml/min 07/27/21 06:12 BUN/Creatinine Ratio 8 % 07/27/21 06:12 Glucose 104 mg/dL (75-100) H 07/27/21 06:12 Lactic Acid 1.40 mmol/L (0.7-2.0) 07/27/21 01:53 Calcium 8.4 mg/dL (8.4-10.2) 07/27/21 06:12 Total Bilirubin 0.60 mg/dL (0.1-1.2) 07/26/21 17:05 AST 23 units/L (5-40) 07/26/21 17:05 ALT 20 units/L (7-56) 07/26/21 17:05 Alkaline Phosphatase 75 units/L (35-129) 07/26/21 17:05 C-Reactive Protein 25.90 mg/dL (0.00-1.30) H 07/26/21 17:05 Total Protein 7.1 g/dL (6.3-8.2) 07/26/21 17:05 Albumin 4.2 g/dL (3.9-5) 07/26/21 17:05 Albumin/Globulin Ratio 1.4 % 07/26/21 17:05 Urine Color Yellow (Yellow) 07/26/21 Unknown Urine Turbidity Slightly-cloudy (Clear) 07/26/21 Unknown Urine pH 7.0 (5.0-7.0) 07/26/21 Unknown Ur Specific [place] 1.004 (1.003-1.030) 07/26/21 Unknown Urine Protein 30 mg/dl mg/dL (Negative) 07/26/21 Unknown Urine Glucose (UA) Neg mg/dL (Negative) 07/26/21 Unknown Urine Ketones Neg mg/dL (Negative) 07/26/21 Unknown Urine Blood Sm (Negative) 07/26/21 Unknown Urine Nitrite Neg (Negative) 07/26/21 Unknown Urine Bilirubin Neg (Negative) 07/26/21 Unknown Urine Urobilinogen < 2.0 mg/dL (<2.0) 07/26/21 Unknown Ur Leukocyte Esterase Lg (Negative) 07/26/21 Unknown Urine WBC (Auto) 153.0 /HPF (0.0-6.0) H 07/26/21 Unknown Urine RBC (Auto) 2.0 /HPF (0.0-6.0) 07/26/21 Unknown U Epithel Cells (Auto) 1.0 /HPF (0-13.0) 07/26/21 Unknown Urine Mucus Few /HPF 07/26/21 Unknown Blood Type A POSITIVE 07/26/21 20:20 Antibody Screen Negative 07/26/21 20:20 Microbiology: Microbiology 07/26/21 17:05 Peripheral/Venous Blood Culture - Preliminary NO GROWTH AFTER 24 HOURS 07/26/21 17:20 Peripheral/Venous Blood Culture - Preliminary NO GROWTH AFTER 24 HOURS Casanova/IV: Voiding Method Toilet Active Medications - Current Medications Current Medications: Generic Name Dose Route Start Last Admin Trade Name Freq PRN Reason Stop Dose Admin Acetaminophen 650 mg 07/26/21 20:04 07/28/21 06:06 Acetaminophen 325 Mg Tab PO 650 mg Q4H PRN Administration Pain MILD(1-3)/Fever >100.5/ALATORRE Albuterol 2.5 mg 07/26/21 20:04 Albuterol 2.5 Mg/3 Ml Nebu IH Q4HRT PRN Shortness Of Breath Hydromorphone HCl 0.25 mg 07/26/21 20:04 Hydromorphone 1 Mg/1 Ml Inj IV Q4H PRN Pain, Moderate (4-6) Hydromorphone HCl 0.5 mg 07/26/21 20:04 Hydromorphone 1 Mg/1 Ml Inj IV Q23H PRN Pain , Severe (7-10) Cefepime HCl 2 gm in 100 mls @ 200 mls/hr 07/26/21 22:00 07/27/21 21:06 Cefepime/Ns 2 Gm/100 Ml IV 200 mls/hr Q12H CJ Administration Protocol Sodium Chloride 1,000 mls @ 135 mls/hr 07/26/21 20:15 07/28/21 06:01 Nacl 0.9% 1000 Ml IV 135 mls/hr DIRECT CJ Administration Ondansetron HCl 4 mg 07/26/21 20:04 07/27/21 22:41 Ondansetron 4 Mg/2 Ml Inj IV 4 mg Q8H PRN Administration Nausea And Vomiting Oxycodone/Acetaminophen 1 tab 07/26/21 20:04 Oxycodone /Acetaminophen 5-325mg Tab PO Q6H PRN Pain, Moderate (4-6) Sodium Chloride 10 ml 07/26/21 22:00 07/27/21 21:11 Sodium Chloride 0.9% 10 Ml Flush Syringe IV 10 ml BID CJ Administration Sodium Chloride 10 ml 07/26/21 20:04 Sodium Chloride 0.9% 10 Ml Flush Syringe IV PRN PRN LINE FLUSH
--- NOTE | 2021-07-28 10:24 | Consultation ---
History of Present Illness - Reason for Consult Consult date: 07/28/21 sepsis, UTI Requesting physician: ALURA DURAN - History of Present Illness 30-year-old male with history of nephrolithiasis admitted with back pain, fever. CT revealed evidence of pyelonephritis and hydronephrosis without any obstructing kidney stone. Admitted with sepsis. Urology was consulted. Suspicion for possible reflux which will need work-up. Started on IV antibiotic s. Fever of 103 F yesterday. ID consulted for additional evaluation. No new complaints. Review of Systems: General: fever HEENT: no new visual disturbance Respiratory: No cough, sputum, hemoptysis or shortness of breath Cardiovascular: No chest pain, syncope Gastrointestinal: No nausea, vomiting or diarrhea Genitourinary: No dysuria or hematuria Musculoskeletal: No new or worsening neck pain. Back pain Neurologic: No headaches, seizures Hematologic: No easy bruising or bleeding Endocrine: No night sweats or acute weight loss Skin: negative for rash, jaundice Psychiatric: No suicidal or homicidal ideation Past History Past Medical History: other (Nephrolithiasis) Past Surgical History: No surgical history, Other (Reviewed) Social history: , lives with family Family history: no significant family history Medications and Allergies Allergies Allergy/AdvReac Type Severity Reaction Status Date / Time No Known Allergies Allergy Verified 07/26/21 15:44 Home Medications Medication Instructions Recorded Confirmed Last Taken Type Cyclobenzaprine [Flexeril] 10 mg PO TID PRN #15 tablet 07/15/15 07/26/21 Unknown Rx traMADoL [Ultram] 50 mg PO Q4HR PRN #20 tablet 07/15/15 07/26/21 Unknown Rx Active Meds: Active Medications Acetaminophen (Acetaminophen 325 Mg Tab) 650 mg PO Q4H PRN PRN Reason: Pain MILD(1-3)/Fever >100.5/ALATORRE Last Admin: 07/28/21 06:06 Dose: 650 mg Albuterol (Albuterol 2.5 Mg/3 Ml Nebu) 2.5 mg IH Q4HRT PRN PRN Reason: Shortness Of Breath Hydromorphone HCl (Hydromorphone 1 Mg/1 Ml Inj) 0.25 mg IV Q4H PRN PRN Reason: Pain, Moderate (4-6) Hydromorphone HCl (Hydromorphone 1 Mg/1 Ml Inj) 0.5 mg IV Q23H PRN PRN Reason: Pain , Severe (7-10) Cefepime HCl (Cefepime/Ns 2 Gm/100 Ml) 2 gm in 100 mls @ 200 mls/hr IV Q12H CJ; Protocol Last Admin: 07/27/21 21:06 Dose: 200 mls/hr Sodium Chloride (Nacl 0.9% 1000 Ml) 1,000 mls @ 135 mls/hr IV DIRECT CJ Last Admin: 07/28/21 06:01 Dose: 135 mls/hr Ondansetron HCl (Ondansetron 4 Mg/2 Ml Inj) 4 mg IV Q8H PRN PRN Reason: Nausea And Vomiting Last Admin: 07/27/21 22:41 Dose: 4 mg Oxycodone/Acetaminophen (Oxycodone /Acetaminophen 5-325mg Tab) 1 tab PO Q6H PRN PRN Reason: Pain, Moderate (4-6) Sodium Chloride (Sodium Chloride 0.9% 10 Ml Flush Syringe) 10 ml IV BID [facility] Last Admin: 07/27/21 21:11 Dose: 10 ml Sodium Chloride (Sodium Chloride 0.9% 10 Ml Flush Syringe) 10 ml IV PRN PRN PRN Reason: LINE FLUSH Physical Examination - Physical Exam Narrative exam: Physical Exam: Constitutional: Alert, cooperative. No acute distress Head, Ears, Nose: Normocephalic, atraumatic. External ears, nose normal Eyes: Conjunctivae/corneas clear. No icterus. No ptosis. Neck: Supple, no meningeal signs Cardiovascular: S1, S2 + Respiratory: Good air entry, clear to auscultation bilaterally GI: Soft, non-tender; bowel sounds normal. No peritoneal signs. Minimal CVA tenderness Musculoskeletal: No pedal edema, no cyanosis. Skin: No rash or abscess Hem/Lymphatic: No palpable cervical or supraclavicular nodes. No lymphangitis Psych: Mood ok. Affect normal Neurological: Awake, alert, oriented. No gross abnormality - Constitutional Vitals: Vital Signs Temp Pulse Resp BP Pulse Ox 100.3 F H 99 H 20 135/97 95 07/28/21 04:44 07/28/21 04:44 07/28/21 06:06 07/28/21 04:44 07/28/21 08:49 Temperature -Last 24 Hours Temperature 100.3 F Temperature 100.7 F Temperature 101.9 F Temperature 102.9 F Results - Labs CBC & Chem 7: 07/27/21 06:12 07/27/21 06:12 - Imaging and Cardiology Chest x-ray: report reviewed, image reviewed (no pneumonia. ) Assessment and Plan Cultures: 07/26/2021 blood culture: No growth A/P: 30-year-old male with history of nephrolithiasis with: #Sepsis, secondary to bilateral hydroureteronephrosis, pyelonephritis: CT without renal stones. Urology evaluated, raise question of possible reflux. #ALONZO Recs: -Continue IV cefepime 2 g every 12 hours -Follow-up blood cultures -Follow-up urine culture -Depending on blood or urine culture results, discharge on p.o. antibiotics, complete total 10 days Genny Walsh MD, FACP, [facility] O: [phone] F: [phone] C: [phone]
[2021-07-28] MEDS: CEFEPIME/NS 2 GM/100 ML 2 GM/100 ML BAG IV SCH (10:41)
[2021-07-28] MEDS: HYDROmorphone 1 MG/1 ML INJ IV PRN (10:52)
--- NOTE | 2021-07-28 16:04 | XRay Report ---
CHEST 1 VIEW 07/28/2021 2:56 PM INDICATION / CLINICAL INFORMATION: SOB. COMPARISON: 07/26/2021 FINDINGS: SUPPORT DEVICES: None. HEART / MEDIASTINUM: No significant abnormality. LUNGS / PLEURA: No significant pulmonary or pleural abnormality. No pneumothorax. ADDITIONAL FINDINGS: No significant additional findings. IMPRESSION: 1. No acute findings. Signer Name: Prabhu Junior MD Signed: 07/28/2021 3:59 PM Workstation Name: [employer]
[2021-07-28 17:51] LABS: ABG HCO3 17.9 mmol/L (20.0-26.0); ABG Methemoglobin 0.7 % (0.0-1.5); ABG Oxygen Saturation 96.8 % (95.0-99.0); ABG PCO2 27.7 mm Hg; ABG PH 7.428 pH Units (7.350-7.450); ABG PO2 73.6 mm Hg (80.0-90.0)
[2021-07-28] MEDS: oxyCODONE /ACETAMINOPHEN 5-325MG TAB PO PRN (21:01)
[2021-07-29] MEDS: CEFEPIME/NS 2 GM/100 ML 2 GM/100 ML BAG IV SCH ×2 (03:28→16:05)
[2021-07-29] MEDS: ACETAMINOPHEN 325 MG TAB PO PRN (04:50)
[2021-07-29] MEDS: oxyCODONE /ACETAMINOPHEN 5-325MG TAB PO PRN ×2 (04:50→14:04)
[2021-07-29] MEDS: SODIUM CHLORIDE 0.9% 1000 ML 1,000 ML IV SCH ×4 (04:51→15:02)
[2021-07-29 07:07] LABS: Hematocrit 37.3 % (35.5-45.6); Hemoglobin 12.6 gm/dl (11.8-15.2); Mean Corpuscular HGB Conc 34 % (32-34); Mean Corpuscular Volume 89 fl (84-94); Platelet Count 234 K/mm3 (140-440); Red Blood Count 4.18 M/mm3 (3.65-5.03); Red Cell Distribution Width 13.3 % (13.2-15.2)
[2021-07-29 07:30] LABS: BUN/Creatinine Ratio 8; Blood Urea Nitrogen 8 mg/dL (9-20); Calcium 8.3 mg/dL (8.4-10.2); Hemolysis Index 0
[2021-07-29 11:07] LABS: Basophils % (Manual) 0 % (0.0-1.8); Eosinophils % (Manual) 0 % (0.0-4.3); RBC Morphology Normal; Total Cells Counted 100
[2021-07-29 11:08] LABS: Platelet Estimate Consistent w Auto
--- NOTE | 2021-07-29 12:57 | Progress Note ---
Assessment and Plan Assessment and plan: Sepsis. Patient meets criteria given the leukocytosis, fever and diagnosis of pyelonephritis UTI/pyelonephritis nephrolithiasis Bilateral hydroureteronephrosis Acute kidney injury Obstructive uropathy 07/27/2021. CT scan reveals bilateral hydroureteronephrosis and perinephric stranding. Urinalysis reveals 153 WBCs. We will follow-up blood and urine cultures. Await urology consultation. Continue IV antibiotics. Patient has a slight elevation of creatinine to 1.4. Continue to monitor BMP closely 07/28/2021. Urology reports patient may have vesicoureteral reflux. Patient currently voiding well without Casanova. Continue IV antibiotics. Patient still with fever spike. We will consult ID for further evaluation. Follow-up blood and urine cultures 07/29/2021. Patient now complains of headache and neck pain. We will arrange for lumbar puncture under fluoroscopy. Check CSF studies. Continue IV antibiotics. Follow-up blood and urine cultures. ID following. History Interval history: No new issues overnight. Hospitalist Physical - Constitutional Vitals: Temp Pulse Resp BP Pulse Ox 102.8 F H 105 H 15 138/87 100 07/29/21 04:06 07/29/21 04:06 07/29/21 08:07 07/29/21 04:06 07/29/21 08:19 General appearance: Present: no acute distress - EENT Eyes: Present: PERRL, EOM intact ENT: hearing intact, clear oral mucosa, dentition normal - Neck Neck: Present: supple, normal ROM - Respiratory Respiratory effort: normal Respiratory: bilateral: CTA - Cardiovascular Rhythm: regular Heart Sounds: Present: S1 & S2. Absent: gallop, rub - Extremities Extremities: no ischemia, No edema, Full ROM - Abdominal General gastrointestinal: soft, non-tender, non-distended, normal bowel sounds - Integumentary Integumentary: Present: clear, warm, dry - Neurologic Neurologic: CNII-XII intact, moves all extremities Results - Labs CBC & Chem 7: 07/29/21 06:23 07/29/21 06:23 Labs: Laboratory Last Values WBC 8.9 K/mm3 (4.5-11.0) 07/29/21 06:23 RBC 4.18 M/mm3 (3.65-5.03) 07/29/21 06:23 Hgb 12.6 gm/dl (11.8-15.2) 07/29/21 06:23 Hct 37.3 % (35.5-45.6) 07/29/21 06:23 MCV 89 fl (84-94) 07/29/21 06:23 MCH 30 pg (28-32) 07/29/21 06:23 MCHC 34 % (32-34) 07/29/21 06:23 RDW 13.3 % (13.2-15.2) 07/29/21 06:23 Plt Count 234 K/mm3 (140-440) 07/29/21 06:23 Lymph % (Auto) 4.8 % (13.4-35.0) L 07/27/21 06:12 [place] % (Auto) Internet [employer] 07/29/21 06:23 Eos % (Auto) 0.0 % (0.0-4.3) 07/27/21 06:12 Baso % (Auto) 0.1 % (0.0-1.8) 07/27/21 06:12 Lymph # (Auto) 0.9 K/mm3 (1.2-5.4) L 07/27/21 06:12 [place] # (Auto) 2.4 K/mm3 (0.0-0.8) H 07/27/21 06:12 Eos # (Auto) 0.0 K/mm3 (0.0-0.4) 07/27/21 06:12 Baso # (Auto) 0.0 K/mm3 (0.0-0.1) 07/27/21 06:12 Add Manual Diff Complete 07/29/21 06:23 Total Counted 100 07/29/21 06:23 Seg Neutrophils % 82.8 % (40.0-70.0) H 07/27/21 06:12 Seg Neuts % (Manual) 72.0 % (40.0-70.0) H 07/29/21 06:23 Band Neutrophils % 0 % 07/29/21 06:23 Lymphocytes % (Manual) 8.0 % (13.4-35.0) L 07/29/21 06:23 Reactive Lymphs % (Man) 1.0 % 07/29/21 06:23 Monocytes % (Manual) 17.0 % (0.0-7.3) H 07/29/21 06:23 Eosinophils % (Manual) 0 % (0.0-4.3) 07/29/21 06:23 Basophils % (Manual) 0 % (0.0-1.8) 07/29/21 06:23 Metamyelocytes % 2.0 % 07/29/21 06:23 Myelocytes % 0 % 07/29/21 06:23 Promyelocytes % 0 % 07/29/21 06:23 Blast Cells % 0 % 07/29/21 06:23 Nucleated RBC % Not Reportable 07/29/21 06:23 Seg Neutrophils # 16.0 K/mm3 (1.8-7.7) H 07/27/21 06:12 Seg Neutrophils # Man 6.4 K/mm3 (1.8-7.7) 07/29/21 06:23 Band Neutrophils # 0.0 K/mm3 07/29/21 06:23 Lymphocytes # (Manual) 0.7 K/mm3 (1.2-5.4) L 07/29/21 06:23 Abs React Lymphs (Man) 0.1 K/mm3 07/29/21 06:23 Monocytes # (Manual) 1.5 K/mm3 (0.0-0.8) H 07/29/21 06:23 Eosinophils # (Manual) 0.0 K/mm3 (0.0-0.4) 07/29/21 06:23 Basophils # (Manual) 0.0 K/mm3 (0.0-0.1) 07/29/21 06:23 Metamyelocytes # 0.2 K/mm3 07/29/21 06:23 Myelocytes # 0.0 K/mm3 07/29/21 06:23 Promyelocytes # 0.0 K/mm3 07/29/21 06:23 Blast Cells # 0.0 K/mm3 07/29/21 06:23 WBC Morphology Not Reportable 07/29/21 06:23 Hypersegmented Neuts Not Reportable 07/29/21 06:23 Hyposegmented Neuts Not Reportable 07/29/21 06:23 Hypogranular Neuts Not Reportable 07/29/21 06:23 Smudge Cells Not Reportable 07/29/21 06:23 Toxic Granulation Not Reportable 07/29/21 06:23 Toxic Vacuolation Not Reportable 07/29/21 06:23 Dohle Bodies Not Reportable 07/29/21 06:23 Pelger-Huet Anomaly Not Reportable 07/29/21 06:23 Dinora Rods Not Reportable 07/29/21 06:23 Platelet Estimate Consistent w auto 07/29/21 06:23 Clumped Platelets Not Reportable 07/29/21 06:23 Plt Clumps, EDTA Not Reportable 07/29/21 06:23 Large Platelets Not Reportable 07/29/21 06:23 Giant Platelets Not Reportable 07/29/21 06:23 Platelet Satelliting Not Reportable 07/29/21 06:23 Plt Morphology Comment Not Reportable 07/29/21 06:23 RBC Morphology Normal 07/29/21 06:23 Dimorphic RBCs Not Reportable 07/29/21 06:23 Polychromasia Not Reportable 07/29/21 06:23 Hypochromasia Not Reportable 07/29/21 06:23 Poikilocytosis Not Reportable 07/29/21 06:23 Anisocytosis Not Reportable 07/29/21 06:23 Microcytosis Not Reportable 07/29/21 06:23 Macrocytosis Not Reportable 07/29/21 06:23 Spherocytes Not Reportable 07/29/21 06:23 Pappenheimer Bodies Not Reportable 07/29/21 06:23 Sickle Cells Not Reportable 07/29/21 06:23 Target Cells Not Reportable 07/29/21 06:23 Tear Drop Cells Not Reportable 07/29/21 06:23 Ovalocytes Not Reportable 07/29/21 06:23 Helmet Cells Not Reportable 07/29/21 06:23 Mcgraw-Carrizo Bodies Not Reportable 07/29/21 06:23 [place] Rings Not Reportable 07/29/21 06:23 Axson Cells Not Reportable 07/29/21 06:23 Bite Cells Not Reportable 07/29/21 06:23 Crenated Cell Not Reportable 07/29/21 06:23 Elliptocytes Not Reportable 07/29/21 06:23 Acanthocytes (Spur) Not Reportable 07/29/21 06:23 Rouleaux Not Reportable 07/29/21 06:23 Hemoglobin C Crystals Not Reportable 07/29/21 06:23 Schistocytes Not Reportable 07/29/21 06:23 Malaria parasites Not Reportable 07/29/21 06:23 Boyd Bodies Not Reportable 07/29/21 06:23 Hem Pathologist Commnt No 07/29/21 06:23 ABG pH 7.428 pH Units (7.350-7.450) 07/28/21 17:45 ABG pCO2 27.7 mm Hg 07/28/21 17:45 ABG pO2 73.6 mm Hg (80.0-90.0) L 07/28/21 17:45 ABG HCO3 17.9 mmol/L (20.0-26.0) L 07/28/21 17:45 ABG O2 Saturation 96.8 % (95.0-99.0) 07/28/21 17:45 ABG O2 Content 18.1 (0.0-44) 07/28/21 17:45 ABG Base Excess -5.0 mmol/L (-2.0-3.0) L 07/28/21 17:45 ABG Hemoglobin 13.5 gm/dl (14.0-18.0) L 07/28/21 17:45 ABG Carboxyhemoglobin 1.1 % (0.0-5.0) 07/28/21 17:45 ABG Methemoglobin 0.7 % (0.0-1.5) 07/28/21 17:45 Oxyhemoglobin 95.1 % (95.0-99.0) 07/28/21 17:45 FiO2 28 % 07/28/21 17:45 Sodium 137 mmol/L (137-145) 07/29/21 06:23 Potassium 3.4 mmol/L (3.6-5.0) L 07/29/21 06:23 Chloride 104.1 mmol/L (98-107) 07/29/21 06:23 Carbon Dioxide 20 mmol/L (22-30) L 07/29/21 06:23 Anion Gap 16 mmol/L 07/29/21 06:23 BUN 8 mg/dL (9-20) L 07/29/21 06:23 Creatinine 1.0 mg/dL (0.8-1.3) 07/29/21 06:23 Estimated GFR > 60 ml/min 07/29/21 06:23 BUN/Creatinine Ratio 8 % 07/29/21 06:23 Glucose 109 mg/dL (75-100) H 07/29/21 06:23 Lactic Acid 1.40 mmol/L (0.7-2.0) 07/27/21 01:53 Calcium 8.3 mg/dL (8.4-10.2) L 07/29/21 06:23 Total Bilirubin 0.60 mg/dL (0.1-1.2) 07/26/21 17:05 AST 23 units/L (5-40) 07/26/21 17:05 ALT 20 units/L (7-56) 07/26/21 17:05 Alkaline Phosphatase 75 units/L (35-129) 07/26/21 17:05 C-Reactive Protein 25.90 mg/dL (0.00-1.30) H 07/26/21 17:05 Total Protein 7.1 g/dL (6.3-8.2) 07/26/21 17:05 Albumin 4.2 g/dL (3.9-5) 07/26/21 17:05 Albumin/Globulin Ratio 1.4 % 07/26/21 17:05 Urine Color Yellow (Yellow) 07/26/21 Unknown Urine Turbidity Slightly-cloudy (Clear) 07/26/21 Unknown Urine pH 7.0 (5.0-7.0) 07/26/21 Unknown Ur Specific Mobile 1.004 (1.003-1.030) 07/26/21 Unknown Urine Protein 30 mg/dl mg/dL (Negative) 07/26/21 Unknown Urine Glucose (UA) Neg mg/dL (Negative) 07/26/21 Unknown Urine Ketones Neg mg/dL (Negative) 07/26/21 Unknown Urine Blood Sm (Negative) 07/26/21 Unknown Urine Nitrite Neg (Negative) 07/26/21 Unknown Urine Bilirubin Neg (Negative) 07/26/21 Unknown Urine Urobilinogen < 2.0 mg/dL (<2.0) 07/26/21 Unknown Ur Leukocyte Esterase Lg (Negative) 07/26/21 Unknown Urine WBC (Auto) 153.0 /HPF (0.0-6.0) H 07/26/21 Unknown Urine RBC (Auto) 2.0 /HPF (0.0-6.0) 07/26/21 Unknown U Epithel Cells (Auto) 1.0 /HPF (0-13.0) 07/26/21 Unknown Urine Mucus Few /HPF 07/26/21 Unknown Blood Type A POSITIVE 07/26/21 20:20 Antibody Screen Negative 07/26/21 20:20 Microbiology: Microbiology 07/26/21 17:05 Peripheral/Venous Blood Culture - Preliminary NO GROWTH AFTER 48 HOURS 07/26/21 17:20 Peripheral/Venous Blood Culture - Preliminary NO GROWTH AFTER 48 HOURS Casanova/IV: Voiding Method Toilet Active Medications - Current Medications Current Medications: Generic Name Dose Route Start Last Admin Trade Name Freq PRN Reason Stop Dose Admin Acetaminophen 650 mg 07/26/21 20:04 07/29/21 04:50 Acetaminophen 325 Mg Tab PO 650 mg Q4H PRN Administration Pain MILD(1-3)/Fever >100.5/ALATORRE Albuterol 2.5 mg 07/26/21 20:04 07/28/21 14:21 Albuterol 2.5 Mg/3 Ml Nebu IH 2.5 mg Q4HRT PRN Administration Shortness Of Breath Hydromorphone HCl 0.25 mg 07/26/21 20:04 Hydromorphone 1 Mg/1 Ml Inj IV Q4H PRN Pain, Moderate (4-6) Hydromorphone HCl 0.5 mg 07/26/21 20:04 07/28/21 10:52 Hydromorphone 1 Mg/1 Ml Inj IV 0.5 mg Q23H PRN Administration Pain , Severe (7-10) Sodium Chloride 1,000 mls @ 135 mls/hr 07/26/21 20:15 07/29/21 12:19 Nacl 0.9% 1000 Ml IV 135 mls/hr DIRECT CJ Administration Cefepime HCl 2 gm in 100 mls @ 200 mls/hr 07/29/21 04:00 07/29/21 07:52 Cefepime/Ns 2 Gm/100 Ml IV Infused Q12H CJ Infusion Protocol Ondansetron HCl 4 mg 07/26/21 20:04 07/27/21 22:41 Ondansetron 4 Mg/2 Ml Inj IV 4 mg Q8H PRN Administration Nausea And Vomiting Oxycodone/Acetaminophen 1 tab 07/26/21 20:04 07/29/21 04:50 Oxycodone /Acetaminophen 5-325mg Tab PO 1 tab Q6H PRN Administration Pain, Moderate (4-6) Sodium Chloride 10 ml 07/26/21 22:00 07/29/21 10:02 Sodium Chloride 0.9% 10 Ml Flush Syringe IV 10 ml BID CJ Administration Sodium Chloride 10 ml 07/26/21 20:04 Sodium Chloride 0.9% 10 Ml Flush Syringe IV PRN PRN LINE FLUSH
[2021-07-30] MEDS: oxyCODONE /ACETAMINOPHEN 5-325MG TAB PO PRN ×2 (00:01→12:21)
[2021-07-30] MEDS: ACETAMINOPHEN 325 MG TAB PO PRN ×2 (00:01→12:22)
[2021-07-30] MEDS: SODIUM CHLORIDE 0.9% 1000 ML 1,000 ML IV SCH ×2 (01:44→12:21)
[2021-07-30] MEDS: CEFEPIME/NS 2 GM/100 ML 2 GM/100 ML BAG IV SCH ×2 (04:09→19:30)
[2021-07-30] MEDS: HYDROmorphone 1 MG/1 ML INJ IV PRN (05:30)
--- NOTE | 2021-07-30 10:11 | Progress Note ---
Assessment and Plan Assessment and plan: Sepsis. Patient meets criteria given the leukocytosis, fever and diagnosis of pyelonephritis UTI/pyelonephritis nephrolithiasis Bilateral hydroureteronephrosis Acute kidney injury Obstructive uropathy 07/27/2021. CT scan reveals bilateral hydroureteronephrosis and perinephric stranding. Urinalysis reveals 153 WBCs. We will follow-up blood and urine cultures. Await urology consultation. Continue IV antibiotics. Patient has a slight elevation of creatinine to 1.4. Continue to monitor BMP closely 07/28/2021. Urology reports patient may have vesicoureteral reflux. Patient currently voiding well without Casanova. Continue IV antibiotics. Patient still with fever spike. We will consult ID for further evaluation. Follow-up blood and urine cultures 07/29/2021. Patient now complains of headache and neck pain. We will arrange for lumbar puncture under fluoroscopy. Check CSF studies. Continue IV antibiotics. Follow-up blood and urine cultures. ID following. 07/30/2021. Patient still complains of headache and neck pain/stiffness but improved. Lumbar puncture under fluoroscopy to be done in a.m. Follow-up CSF studies. Continue IV antibiotics. Follow-up blood and urine cultures. ID following. History Interval history: No new issues overnight. Hospitalist Physical - Constitutional Vitals: Temp Pulse Resp BP Pulse Ox 98.2 F 86 18 142/100 97 07/30/21 05:08 07/30/21 05:08 07/30/21 05:08 07/30/21 05:08 07/30/21 05:08 General appearance: Present: no acute distress - EENT Eyes: Present: PERRL, EOM intact ENT: hearing intact, clear oral mucosa, dentition normal - Neck Neck: Present: supple, normal ROM - Respiratory Respiratory effort: normal Respiratory: bilateral: CTA - Cardiovascular Rhythm: regular Heart Sounds: Present: S1 & S2. Absent: gallop, rub - Extremities Extremities: no ischemia, No edema, Full ROM - Abdominal General gastrointestinal: soft, non-tender, non-distended, normal bowel sounds - Integumentary Integumentary: Present: clear, warm, dry - Neurologic Neurologic: CNII-XII intact, moves all extremities Results - Labs CBC & Chem 7: 07/29/21 06:23 07/29/21 06:23 Labs: Laboratory Last Values WBC 8.9 K/mm3 (4.5-11.0) 07/29/21 06:23 RBC 4.18 M/mm3 (3.65-5.03) 07/29/21 06:23 Hgb 12.6 gm/dl (11.8-15.2) 07/29/21 06:23 Hct 37.3 % (35.5-45.6) 07/29/21 06:23 MCV 89 fl (84-94) 07/29/21 06:23 MCH 30 pg (28-32) 07/29/21 06:23 MCHC 34 % (32-34) 07/29/21 06:23 RDW 13.3 % (13.2-15.2) 07/29/21 06:23 Plt Count 234 K/mm3 (140-440) 07/29/21 06:23 Lymph % (Auto) 4.8 % (13.4-35.0) L 07/27/21 06:12 [place]mer[place]da % (Auto) Legal Executive 07/29/21 06:23 Eos % (Auto) 0.0 % (0.0-4.3) 07/27/21 06:12 Baso % (Auto) 0.1 % (0.0-1.8) 07/27/21 06:12 Lymph # (Auto) 0.9 K/mm3 (1.2-5.4) L 07/27/21 06:12 [place] # (Auto) 2.4 K/mm3 (0.0-0.8) H 07/27/21 06:12 Eos # (Auto) 0.0 K/mm3 (0.0-0.4) 07/27/21 06:12 Baso # (Auto) 0.0 K/mm3 (0.0-0.1) 07/27/21 06:12 Add Manual Diff Complete 07/29/21 06:23 Total Counted 100 07/29/21 06:23 Seg Neutrophils % 82.8 % (40.0-70.0) H 07/27/21 06:12 Seg Neuts % (Manual) 72.0 % (40.0-70.0) H 07/29/21 06:23 Band Neutrophils % 0 % 07/29/21 06:23 Lymphocytes % (Manual) 8.0 % (13.4-35.0) L 07/29/21 06:23 Reactive Lymphs % (Man) 1.0 % 07/29/21 06:23 Monocytes % (Manual) 17.0 % (0.0-7.3) H 07/29/21 06:23 Eosinophils % (Manual) 0 % (0.0-4.3) 07/29/21 06:23 Basophils % (Manual) 0 % (0.0-1.8) 07/29/21 06:23 Metamyelocytes % 2.0 % 07/29/21 06:23 Myelocytes % 0 % 07/29/21 06:23 Promyelocytes % 0 % 07/29/21 06:23 Blast Cells % 0 % 07/29/21 06:23 Nucleated RBC % Not Reportable 07/29/21 06:23 Seg Neutrophils # 16.0 K/mm3 (1.8-7.7) H 07/27/21 06:12 Seg Neutrophils # Man 6.4 K/mm3 (1.8-7.7) 07/29/21 06:23 Band Neutrophils # 0.0 K/mm3 07/29/21 06:23 Lymphocytes # (Manual) 0.7 K/mm3 (1.2-5.4) L 07/29/21 06:23 Abs React Lymphs (Man) 0.1 K/mm3 07/29/21 06:23 Monocytes # (Manual) 1.5 K/mm3 (0.0-0.8) H 07/29/21 06:23 Eosinophils # (Manual) 0.0 K/mm3 (0.0-0.4) 07/29/21 06:23 Basophils # (Manual) 0.0 K/mm3 (0.0-0.1) 07/29/21 06:23 Metamyelocytes # 0.2 K/mm3 07/29/21 06:23 Myelocytes # 0.0 K/mm3 07/29/21 06:23 Promyelocytes # 0.0 K/mm3 07/29/21 06:23 Blast Cells # 0.0 K/mm3 07/29/21 06:23 WBC Morphology Not Reportable 07/29/21 06:23 Hypersegmented Neuts Not Reportable 07/29/21 06:23 Hyposegmented Neuts Not Reportable 07/29/21 06:23 Hypogranular Neuts Not Reportable 07/29/21 06:23 Smudge Cells Not Reportable 07/29/21 06:23 Toxic Granulation Not Reportable 07/29/21 06:23 Toxic Vacuolation Not Reportable 07/29/21 06:23 Dohle Bodies Not Reportable 07/29/21 06:23 Pelger-Huet Anomaly Not Reportable 07/29/21 06:23 Dinora Rods Not Reportable 07/29/21 06:23 Platelet Estimate Consistent w auto 07/29/21 06:23 Clumped Platelets Not Reportable 07/29/21 06:23 Plt Clumps, EDTA Not Reportable 07/29/21 06:23 Large Platelets Not Reportable 07/29/21 06:23 Giant Platelets Not Reportable 07/29/21 06:23 Platelet Satelliting Not Reportable 07/29/21 06:23 Plt Morphology Comment Not Reportable 07/29/21 06:23 RBC Morphology Normal 07/29/21 06:23 Dimorphic RBCs Not Reportable 07/29/21 06:23 Polychromasia Not Reportable 07/29/21 06:23 Hypochromasia Not Reportable 07/29/21 06:23 Poikilocytosis Not Reportable 07/29/21 06:23 Anisocytosis Not Reportable 07/29/21 06:23 Microcytosis Not Reportable 07/29/21 06:23 Macrocytosis Not Reportable 07/29/21 06:23 Spherocytes Not Reportable 07/29/21 06:23 Pappenheimer Bodies Not Reportable 07/29/21 06:23 Sickle Cells Not Reportable 07/29/21 06:23 Target Cells Not Reportable 07/29/21 06:23 Tear Drop Cells Not Reportable 07/29/21 06:23 Ovalocytes Not Reportable 07/29/21 06:23 Helmet Cells Not Reportable 07/29/21 06:23 Mcgraw-Macon Bodies Not Reportable 07/29/21 06:23 [place] Rings Not Reportable 07/29/21 06:23 Julita Cells Not Reportable 07/29/21 06:23 Bite Cells Not Reportable 07/29/21 06:23 Crenated Cell Not Reportable 07/29/21 06:23 Elliptocytes Not Reportable 07/29/21 06:23 Acanthocytes (Spur) Not Reportable 07/29/21 06:23 Rouleaux Not Reportable 07/29/21 06:23 Hemoglobin C Crystals Not Reportable 07/29/21 06:23 Schistocytes Not Reportable 07/29/21 06:23 Malaria parasites Not Reportable 07/29/21 06:23 Boyd Bodies Not Reportable 07/29/21 06:23 Hem Pathologist Commnt No 07/29/21 06:23 ABG pH 7.428 pH Units (7.350-7.450) 07/28/21 17:45 ABG pCO2 27.7 mm Hg 07/28/21 17:45 ABG pO2 73.6 mm Hg (80.0-90.0) L 07/28/21 17:45 ABG HCO3 17.9 mmol/L (20.0-26.0) L 07/28/21 17:45 ABG O2 Saturation 96.8 % (95.0-99.0) 07/28/21 17:45 ABG O2 Content 18.1 (0.0-44) 07/28/21 17:45 ABG Base Excess -5.0 mmol/L (-2.0-3.0) L 07/28/21 17:45 ABG Hemoglobin 13.5 gm/dl (14.0-18.0) L 07/28/21 17:45 ABG Carboxyhemoglobin 1.1 % (0.0-5.0) 07/28/21 17:45 ABG Methemoglobin 0.7 % (0.0-1.5) 07/28/21 17:45 Oxyhemoglobin 95.1 % (95.0-99.0) 07/28/21 17:45 FiO2 28 % 07/28/21 17:45 Sodium 137 mmol/L (137-145) 07/29/21 06:23 Potassium 3.4 mmol/L (3.6-5.0) L 07/29/21 06:23 Chloride 104.1 mmol/L (98-107) 07/29/21 06:23 Carbon Dioxide 20 mmol/L (22-30) L 07/29/21 06:23 Anion Gap 16 mmol/L 07/29/21 06:23 BUN 8 mg/dL (9-20) L 07/29/21 06:23 Creatinine 1.0 mg/dL (0.8-1.3) 07/29/21 06:23 Estimated GFR > 60 ml/min 07/29/21 06:23 BUN/Creatinine Ratio 8 % 07/29/21 06:23 Glucose 109 mg/dL (75-100) H 07/29/21 06:23 Lactic Acid 1.40 mmol/L (0.7-2.0) 07/27/21 01:53 Calcium 8.3 mg/dL (8.4-10.2) L 07/29/21 06:23 Total Bilirubin 0.60 mg/dL (0.1-1.2) 07/26/21 17:05 AST 23 units/L (5-40) 07/26/21 17:05 ALT 20 units/L (7-56) 07/26/21 17:05 Alkaline Phosphatase 75 units/L (35-129) 07/26/21 17:05 C-Reactive Protein 25.90 mg/dL (0.00-1.30) H 07/26/21 17:05 Total Protein 7.1 g/dL (6.3-8.2) 07/26/21 17:05 Albumin 4.2 g/dL (3.9-5) 07/26/21 17:05 Albumin/Globulin Ratio 1.4 % 07/26/21 17:05 Urine Color Yellow (Yellow) 07/26/21 Unknown Urine Turbidity Slightly-cloudy (Clear) 07/26/21 Unknown Urine pH 7.0 (5.0-7.0) 07/26/21 Unknown Ur Specific [place] 1.004 (1.003-1.030) 07/26/21 Unknown Urine Protein 30 mg/dl mg/dL (Negative) 07/26/21 Unknown Urine Glucose (UA) Neg mg/dL (Negative) 07/26/21 Unknown Urine Ketones Neg mg/dL (Negative) 07/26/21 Unknown Urine Blood Sm (Negative) 07/26/21 Unknown Urine Nitrite Neg (Negative) 07/26/21 Unknown Urine Bilirubin Neg (Negative) 07/26/21 Unknown Urine Urobilinogen < 2.0 mg/dL (<2.0) 07/26/21 Unknown Ur Leukocyte Esterase Lg (Negative) 07/26/21 Unknown Urine WBC (Auto) 153.0 /HPF (0.0-6.0) H 07/26/21 Unknown Urine RBC (Auto) 2.0 /HPF (0.0-6.0) 07/26/21 Unknown U Epithel Cells (Auto) 1.0 /HPF (0-13.0) 07/26/21 Unknown Urine Mucus Few /HPF 07/26/21 Unknown Blood Type A POSITIVE 07/26/21 20:20 Antibody Screen Negative 07/26/21 20:20 Microbiology: Microbiology 07/26/21 17:05 Peripheral/Venous Blood Culture - Preliminary NO GROWTH AFTER 72 HOURS 07/26/21 17:20 Peripheral/Venous Blood Culture - Preliminary NO GROWTH AFTER 72 HOURS Casanova/IV: Voiding Method Urinal Active Medications - Current Medications Current Medications: Generic Name Dose Route Start Last Admin Trade Name Freq PRN Reason Stop Dose Admin Acetaminophen 650 mg 07/26/21 20:04 07/30/21 00:01 Acetaminophen 325 Mg Tab PO 650 mg Q4H PRN Administration Pain MILD(1-3)/Fever >100.5/ALATORRE Albuterol 2.5 mg 07/26/21 20:04 07/28/21 14:21 Albuterol 2.5 Mg/3 Ml Nebu IH 2.5 mg Q4HRT PRN Administration Shortness Of Breath Hydromorphone HCl 0.25 mg 07/26/21 20:04 Hydromorphone 1 Mg/1 Ml Inj IV Q4H PRN Pain, Moderate (4-6) Hydromorphone HCl 0.5 mg 07/26/21 20:04 07/30/21 05:30 Hydromorphone 1 Mg/1 Ml Inj IV 0.5 mg Q23H PRN Administration Pain , Severe (7-10) Sodium Chloride 1,000 mls @ 135 mls/hr 07/26/21 20:15 07/30/21 01:44 Nacl 0.9% 1000 Ml IV 135 mls/hr DIRECT CJ Administration Cefepime HCl 2 gm in 100 mls @ 200 mls/hr 07/29/21 04:00 07/30/21 04:09 Cefepime/Ns 2 Gm/100 Ml IV 200 mls/hr Q12H CJ Administration Protocol Ondansetron HCl 4 mg 07/26/21 20:04 07/27/21 22:41 Ondansetron 4 Mg/2 Ml Inj IV 4 mg Q8H PRN Administration Nausea And Vomiting Oxycodone/Acetaminophen 1 tab 07/26/21 20:04 07/30/21 00:01 Oxycodone /Acetaminophen 5-325mg Tab PO 1 tab Q6H PRN Administration Pain, Moderate (4-6) Sodium Chloride 10 ml 07/26/21 22:00 07/29/21 21:34 Sodium Chloride 0.9% 10 Ml Flush Syringe IV 10 ml BID CJ Administration Sodium Chloride 10 ml 07/26/21 20:04 07/30/21 05:32 Sodium Chloride 0.9% 10 Ml Flush Syringe IV 10 ml PRN PRN Administration LINE FLUSH
[2021-07-30] MEDS ORDERED: hydrALAZINE 20 MG/1 ML INJ IV PRN (23:52)
[2021-07-31] MEDS: ACETAMINOPHEN 325 MG TAB PO PRN (00:04)
[2021-07-31] MEDS: CEFEPIME/NS 2 GM/100 ML 2 GM/100 ML BAG IV SCH ×2 (04:20→15:37)
[2021-07-31] MEDS: HYDROmorphone 1 MG/1 ML INJ IV PRN (06:18)
[2021-07-31] MEDS ORDERED: LIDOCAINE (1%) 10 MG/1 ML VIAL 20 ML MDV ONE (09:08)
--- NOTE | 2021-07-31 09:37 | Progress Note ---
Assessment and Plan Assessment and plan: Sepsis. Patient meets criteria given the leukocytosis, fever and diagnosis of pyelonephritis UTI/pyelonephritis Persistent fevers nephrolithiasis Bilateral hydroureteronephrosis Acute kidney injury Obstructive uropathy 07/27/2021. CT scan reveals bilateral hydroureteronephrosis and perinephric stranding. Urinalysis reveals 153 WBCs. We will follow-up blood and urine cultures. Await urology consultation. Continue IV antibiotics. Patient has a slight elevation of creatinine to 1.4. Continue to monitor BMP closely 07/28/2021. Urology reports patient may have vesicoureteral reflux. Patient currently voiding well without Casanova. Continue IV antibiotics. Patient still with fever spike. We will consult ID for further evaluation. Follow-up blood and urine cultures 07/29/2021. Patient now complains of headache and neck pain. We will arrange for lumbar puncture under fluoroscopy. Check CSF studies. Continue IV antibiotics. Follow-up blood and urine cultures. ID following. 07/30/2021. Patient still complains of headache and neck pain/stiffness but improved. Lumbar puncture under fluoroscopy to be done in a.m. Follow-up CSF studies. Continue IV antibiotics. Follow-up blood and urine cultures. ID following. 07/31/2021. Patient has not ever appeared toxic. However, patient still complains of slight headache and neck stiffness. Patient with persistent fevers. Lumbar puncture under fluoroscopy today per radiology. Follow-up CSF studies. Continue IV antibiotics. Blood cultures no growth x4 days. Urine culture with no growth as well. ID following. History Interval history: No new issues overnight. Hospitalist Physical - Constitutional Vitals: Temp Pulse Resp BP Pulse Ox 99.0 F 72 18 136/90 98 07/31/21 05:21 07/31/21 05:21 07/31/21 05:21 07/31/21 05:21 07/31/21 08:08 General appearance: Present: no acute distress - EENT Eyes: Present: PERRL, EOM intact ENT: hearing intact, clear oral mucosa, dentition normal - Neck Neck: Present: supple, normal ROM - Respiratory Respiratory effort: normal Respiratory: bilateral: CTA - Cardiovascular Rhythm: regular Heart Sounds: Present: S1 & S2. Absent: gallop, rub - Extremities Extremities: no ischemia, No edema, Full ROM - Abdominal General gastrointestinal: soft, non-tender, non-distended, normal bowel sounds - Integumentary Integumentary: Present: clear, warm, dry - Neurologic Neurologic: CNII-XII intact, moves all extremities Results - Labs CBC & Chem 7: 07/29/21 06:23 07/29/21 06:23 Labs: Laboratory Last Values WBC 8.9 K/mm3 (4.5-11.0) 07/29/21 06:23 RBC 4.18 M/mm3 (3.65-5.03) 07/29/21 06:23 Hgb 12.6 gm/dl (11.8-15.2) 07/29/21 06:23 Hct 37.3 % (35.5-45.6) 07/29/21 06:23 MCV 89 fl (84-94) 07/29/21 06:23 MCH 30 pg (28-32) 07/29/21 06:23 MCHC 34 % (32-34) 07/29/21 06:23 RDW 13.3 % (13.2-15.2) 07/29/21 06:23 Plt Count 234 K/mm3 (140-440) 07/29/21 06:23 Lymph % (Auto) 4.8 % (13.4-35.0) L 07/27/21 06:12 [place] % (Auto) Decontamination Worker 07/29/21 06:23 Eos % (Auto) 0.0 % (0.0-4.3) 07/27/21 06:12 Baso % (Auto) 0.1 % (0.0-1.8) 07/27/21 06:12 Lymph # (Auto) 0.9 K/mm3 (1.2-5.4) L 07/27/21 06:12 [place] # (Auto) 2.4 K/mm3 (0.0-0.8) H 07/27/21 06:12 Eos # (Auto) 0.0 K/mm3 (0.0-0.4) 07/27/21 06:12 Baso # (Auto) 0.0 K/mm3 (0.0-0.1) 07/27/21 06:12 Add Manual Diff Complete 07/29/21 06:23 Total Counted 100 07/29/21 06:23 Seg Neutrophils % 82.8 % (40.0-70.0) H 07/27/21 06:12 Seg Neuts % (Manual) 72.0 % (40.0-70.0) H 07/29/21 06:23 Band Neutrophils % 0 % 07/29/21 06:23 Lymphocytes % (Manual) 8.0 % (13.4-35.0) L 07/29/21 06:23 Reactive Lymphs % (Man) 1.0 % 07/29/21 06:23 Monocytes % (Manual) 17.0 % (0.0-7.3) H 07/29/21 06:23 Eosinophils % (Manual) 0 % (0.0-4.3) 07/29/21 06:23 Basophils % (Manual) 0 % (0.0-1.8) 07/29/21 06:23 Metamyelocytes % 2.0 % 07/29/21 06:23 Myelocytes % 0 % 07/29/21 06:23 Promyelocytes % 0 % 07/29/21 06:23 Blast Cells % 0 % 07/29/21 06:23 Nucleated RBC % Not Reportable 07/29/21 06:23 Seg Neutrophils # 16.0 K/mm3 (1.8-7.7) H 07/27/21 06:12 Seg Neutrophils # Man 6.4 K/mm3 (1.8-7.7) 07/29/21 06:23 Band Neutrophils # 0.0 K/mm3 07/29/21 06:23 Lymphocytes # (Manual) 0.7 K/mm3 (1.2-5.4) L 07/29/21 06:23 Abs React Lymphs (Man) 0.1 K/mm3 07/29/21 06:23 Monocytes # (Manual) 1.5 K/mm3 (0.0-0.8) H 07/29/21 06:23 Eosinophils # (Manual) 0.0 K/mm3 (0.0-0.4) 07/29/21 06:23 Basophils # (Manual) 0.0 K/mm3 (0.0-0.1) 07/29/21 06:23 Metamyelocytes # 0.2 K/mm3 07/29/21 06:23 Myelocytes # 0.0 K/mm3 07/29/21 06:23 Promyelocytes # 0.0 K/mm3 07/29/21 06:23 Blast Cells # 0.0 K/mm3 07/29/21 06:23 WBC Morphology Not Reportable 07/29/21 06:23 Hypersegmented Neuts Not Reportable 07/29/21 06:23 Hyposegmented Neuts Not Reportable 07/29/21 06:23 Hypogranular Neuts Not Reportable 07/29/21 06:23 Smudge Cells Not Reportable 07/29/21 06:23 Toxic Granulation Not Reportable 07/29/21 06:23 Toxic Vacuolation Not Reportable 07/29/21 06:23 Dohle Bodies Not Reportable 07/29/21 06:23 Pelger-Huet Anomaly Not Reportable 07/29/21 06:23 Dinora Rods Not Reportable 07/29/21 06:23 Platelet Estimate Consistent w auto 07/29/21 06:23 Clumped Platelets Not Reportable 07/29/21 06:23 Plt Clumps, EDTA Not Reportable 07/29/21 06:23 Large Platelets Not Reportable 07/29/21 06:23 Giant Platelets Not Reportable 07/29/21 06:23 Platelet Satelliting Not Reportable 07/29/21 06:23 Plt Morphology Comment Not Reportable 07/29/21 06:23 RBC Morphology Normal 07/29/21 06:23 Dimorphic RBCs Not Reportable 07/29/21 06:23 Polychromasia Not Reportable 07/29/21 06:23 Hypochromasia Not Reportable 07/29/21 06:23 Poikilocytosis Not Reportable 07/29/21 06:23 Anisocytosis Not Reportable 07/29/21 06:23 Microcytosis Not Reportable 07/29/21 06:23 Macrocytosis Not Reportable 07/29/21 06:23 Spherocytes Not Reportable 07/29/21 06:23 Pappenheimer Bodies Not Reportable 07/29/21 06:23 Sickle Cells Not Reportable 07/29/21 06:23 Target Cells Not Reportable 07/29/21 06:23 Tear Drop Cells Not Reportable 07/29/21 06:23 Ovalocytes Not Reportable 07/29/21 06:23 Helmet Cells Not Reportable 07/29/21 06:23 Mcgraw-Clint Bodies Not Reportable 07/29/21 06:23 [place] Rings Not Reportable 07/29/21 06:23 Julita Cells Not Reportable 07/29/21 06:23 Bite Cells Not Reportable 07/29/21 06:23 Crenated Cell Not Reportable 07/29/21 06:23 Elliptocytes Not Reportable 07/29/21 06:23 Acanthocytes (Spur) Not Reportable 07/29/21 06:23 Rouleaux Not Reportable 07/29/21 06:23 Hemoglobin C Crystals Not Reportable 07/29/21 06:23 Schistocytes Not Reportable 07/29/21 06:23 Malaria parasites Not Reportable 07/29/21 06:23 Boyd Bodies Not Reportable 07/29/21 06:23 Hem Pathologist Commnt No 07/29/21 06:23 ABG pH 7.428 pH Units (7.350-7.450) 07/28/21 17:45 ABG pCO2 27.7 mm Hg 07/28/21 17:45 ABG pO2 73.6 mm Hg (80.0-90.0) L 07/28/21 17:45 ABG HCO3 17.9 mmol/L (20.0-26.0) L 07/28/21 17:45 ABG O2 Saturation 96.8 % (95.0-99.0) 07/28/21 17:45 ABG O2 Content 18.1 (0.0-44) 07/28/21 17:45 ABG Base Excess -5.0 mmol/L (-2.0-3.0) L 07/28/21 17:45 ABG Hemoglobin 13.5 gm/dl (14.0-18.0) L 07/28/21 17:45 ABG Carboxyhemoglobin 1.1 % (0.0-5.0) 07/28/21 17:45 ABG Methemoglobin 0.7 % (0.0-1.5) 07/28/21 17:45 Oxyhemoglobin 95.1 % (95.0-99.0) 07/28/21 17:45 FiO2 28 % 07/28/21 17:45 Sodium 137 mmol/L (137-145) 07/29/21 06:23 Potassium 3.4 mmol/L (3.6-5.0) L 07/29/21 06:23 Chloride 104.1 mmol/L (98-107) 07/29/21 06:23 Carbon Dioxide 20 mmol/L (22-30) L 07/29/21 06:23 Anion Gap 16 mmol/L 07/29/21 06:23 BUN 8 mg/dL (9-20) L 07/29/21 06:23 Creatinine 1.0 mg/dL (0.8-1.3) 07/29/21 06:23 Estimated GFR > 60 ml/min 07/29/21 06:23 BUN/Creatinine Ratio 8 % 07/29/21 06:23 Glucose 109 mg/dL (75-100) H 07/29/21 06:23 Lactic Acid 1.40 mmol/L (0.7-2.0) 07/27/21 01:53 Calcium 8.3 mg/dL (8.4-10.2) L 07/29/21 06:23 Total Bilirubin 0.60 mg/dL (0.1-1.2) 07/26/21 17:05 AST 23 units/L (5-40) 07/26/21 17:05 ALT 20 units/L (7-56) 07/26/21 17:05 Alkaline Phosphatase 75 units/L (35-129) 07/26/21 17:05 C-Reactive Protein 25.90 mg/dL (0.00-1.30) H 07/26/21 17:05 Total Protein 7.1 g/dL (6.3-8.2) 07/26/21 17:05 Albumin 4.2 g/dL (3.9-5) 07/26/21 17:05 Albumin/Globulin Ratio 1.4 % 07/26/21 17:05 Urine Color Yellow (Yellow) 07/26/21 Unknown Urine Turbidity Slightly-cloudy (Clear) 07/26/21 Unknown Urine pH 7.0 (5.0-7.0) 07/26/21 Unknown Ur Specific [place] 1.004 (1.003-1.030) 07/26/21 Unknown Urine Protein 30 mg/dl mg/dL (Negative) 07/26/21 Unknown Urine Glucose (UA) Neg mg/dL (Negative) 07/26/21 Unknown Urine Ketones Neg mg/dL (Negative) 07/26/21 Unknown Urine Blood Sm (Negative) 07/26/21 Unknown Urine Nitrite Neg (Negative) 07/26/21 Unknown Urine Bilirubin Neg (Negative) 07/26/21 Unknown Urine Urobilinogen < 2.0 mg/dL (<2.0) 07/26/21 Unknown Ur Leukocyte Esterase Lg (Negative) 07/26/21 Unknown Urine WBC (Auto) 153.0 /HPF (0.0-6.0) H 07/26/21 Unknown Urine RBC (Auto) 2.0 /HPF (0.0-6.0) 07/26/21 Unknown U Epithel Cells (Auto) 1.0 /HPF (0-13.0) 07/26/21 Unknown Urine Mucus Few /HPF 07/26/21 Unknown Blood Type A POSITIVE 07/26/21 20:20 Antibody Screen Negative 07/26/21 20:20 Microbiology: Microbiology 07/28/21 21:03 Urine,Clean Catch Urine Culture - Final NO GROWTH AFTER 48 HOURS 07/26/21 17:05 Peripheral/Venous Blood Culture - Preliminary NO GROWTH AFTER 4 DAYS 07/26/21 17:20 Peripheral/Venous Blood Culture - Preliminary NO GROWTH AFTER 4 DAYS Casanova/IV: Voiding Method Urinal Active Medications - Current Medications Current Medications: Generic Name Dose Route Start Last Admin Trade Name Freq PRN Reason Stop Dose Admin Acetaminophen 650 mg 07/26/21 20:04 07/31/21 00:04 Acetaminophen 325 Mg Tab PO 650 mg Q4H PRN Administration Pain MILD(1-3)/Fever >100.5/ALATORRE Albuterol 2.5 mg 07/26/21 20:04 07/28/21 14:21 Albuterol 2.5 Mg/3 Ml Nebu IH 2.5 mg Q4HRT PRN Administration Shortness Of Breath Hydralazine HCl 10 mg 07/30/21 23:52 07/31/21 00:04 Hydralazine 20 Mg/1 Ml Inj IV 10 mg Q4HR PRN Administration Blood Pressure Hydromorphone HCl 0.25 mg 07/26/21 20:04 07/31/21 06:18 Hydromorphone 1 Mg/1 Ml Inj IV 0.25 mg Q4H PRN Administration Pain, Moderate (4-6) Hydromorphone HCl 0.5 mg 07/26/21 20:04 07/30/21 05:30 Hydromorphone 1 Mg/1 Ml Inj IV 0.5 mg Q23H PRN Administration Pain , Severe (7-10) Sodium Chloride 1,000 mls @ 135 mls/hr 07/26/21 20:15 07/31/21 00:33 Nacl 0.9% 1000 Ml IV Infused DIRECT CJ Infusion Cefepime HCl 2 gm in 100 mls @ 200 mls/hr 07/29/21 04:00 07/31/21 06:27 Cefepime/Ns 2 Gm/100 Ml IV Infused Q12H CJ Infusion Protocol Ondansetron HCl 4 mg 07/26/21 20:04 07/27/21 22:41 Ondansetron 4 Mg/2 Ml Inj IV 4 mg Q8H PRN Administration Nausea And Vomiting Oxycodone/Acetaminophen 1 tab 07/26/21 20:04 07/30/21 12:21 Oxycodone /Acetaminophen 5-325mg Tab PO 1 tab Q6H PRN Administration Pain, Moderate (4-6) Sodium Chloride 10 ml 07/26/21 22:00 07/30/21 22:10 Sodium Chloride 0.9% 10 Ml Flush Syringe IV 10 ml BID CJ Administration Sodium Chloride 10 ml 07/26/21 20:04 07/30/21 05:32 Sodium Chloride 0.9% 10 Ml Flush Syringe IV 10 ml PRN PRN Administration LINE FLUSH
--- NOTE | 2021-07-31 10:03 | Progress Note ---
Assessment and Plan Cultures: 07/26/2021 blood culture: No growth Urine culture: no growth A/P: 30-year-old male with history of nephrolithiasis with: #Sepsis, secondary to bilateral hydroureteronephrosis, pyelonephritis: CT with out renal stones. Urology evaluated, raise question of possible reflux. #ALONZO: creatinine better. Recs: -Follow-up CSF findings -Continue IV cefepime 2 g every 12 hours for now -If no evidence of infection on CSF, planning to discharge on p.o. cefdinir 300 mg twice daily for 10 days -Outpatient urology follow-up due to b/l hydroureteronephrosis, question of possible reflux Genny Walsh MD, FACP, [facility] ([facility] O: [phone] F: [phone] C: [phone] Subjective Date of service: 07/31/21 Principal diagnosis: uti Interval history: T-max of 101.3 F yesterday. Lying in bed flat right now because he just came back from an LP which was done due to complaints of headache and neck stiffness. Denies any other complaints. Objective - Exam Narrative Exam: Physical Exam: Constitutional: Alert, cooperative. No acute distress Head, Ears, Nose: Normocephalic, atraumatic. External ears, nose normal Eyes: Conjunctivae/corneas clear. No icterus. No ptosis. Neck: Supple Cardiovascular: S1, S2 + Respiratory: Good air entry, clear to auscultation bilaterally GI: Soft, non-tender; bowel sounds normal. No peritoneal signs. Musculoskeletal: No pedal edema, no cyanosis. Skin: No rash or abscess Hem/Lymphatic: No palpable cervical or supraclavicular nodes. No lymphangitis Psych: Mood ok. Affect normal Neurological: Awake, alert, oriented. No gross abnormality - Constitutional Vitals: Vital Signs Temp Pulse Resp BP Pulse Ox 99.0 F 72 18 136/90 98 07/31/21 05:21 07/31/21 05:21 07/31/21 05:21 07/31/21 05:21 07/31/21 08:08 Temperature -Last 24 Hours Temperature 99.0 F Temperature 101.3 F Temperature 98.5 F Temperature 99.1 F Temperature 99.6 F - Labs CBC & Chem 7: 07/29/21 06:23 07/29/21 06:23
--- NOTE | 2021-07-31 10:21 | Procedure Note ---
Date of procedure: 07/31/21 Pre-op diagnosis: sepsis, pylonephritis, headache, neck pain Post-op diagnosis: same Procedure: flouro guided lumbar puncture Anesthesia: local Surgeon: YOGI MARQUEZ Estimated blood loss: none Pathology: list (4 csf tubes) Specimen disposition: to lab Condition: stable Disposition: floor
--- NOTE | 2021-07-31 10:26 | Fluoroscopy Report ---
LUMBAR PUNCTURE INDICATION : Fever, headache, neck pain, rule out meningitis PROCEDURE: The risks (including but not limited to bleeding, infection, and spinal headache) and anne efits were explained to the patient and informed consent was obtained. A time out procedure was perf ormed. The procedure site was prepped and draped in the usual sterile fashion and lidocaine was used for local anesthesia. Under fluoroscopic guidance, a 22-gauge spinal needle was advanced into the L3-4 interlaminar space. The opening pressure was 130 mm H2O which was calculated by adding the length of the needle (9 cm) to the height of the CSF column. 4 separate collection tubes containing 1.5-2 mL's of CSF each were obt ained. Samples were sent to the lab per the ordering physician specifications for further evaluation. The patient tolerated the procedure well with no complications. IMPRESSION: Successful lumbar puncture as outlined above. Opening pressure was 130 mm H20. Fluoroscopic time: 0.8 minutes Number of fluoroscopic images: 1 Signer Name: Truong Henson Jr, MD Signed: 07/31/2021 10:22 AM Workstation Name: [id number]
[2021-07-31] MEDS: oxyCODONE /ACETAMINOPHEN 5-325MG TAB PO PRN ×2 (11:16→16:55)
[2021-07-31 11:17] LABS: Glucose,CSF 61 mg/dL
[2021-07-31 11:33] LABS: Hematocrit 40.6 % (35.5-45.6); Hemoglobin 13.5 gm/dl (11.8-15.2); Mean Corpuscular HGB Conc 33 % (32-34); Mean Corpuscular Volume 90 fl (84-94); Platelet Count 347 K/mm3 (140-440); Red Blood Count 4.54 M/mm3 (3.65-5.03); Red Cell Distribution Width 13.5 % (13.2-15.2)
[2021-07-31 11:51] LABS: BUN/Creatinine Ratio 8; Blood Urea Nitrogen 8 mg/dL (9-20); Calcium 8.4 mg/dL (8.4-10.2); Hemolysis Index 6
[2021-07-31 12:29] LABS: Appearance,CSF Clear; Red Blood Cell,CSF 0 /mm3 (0-0); White Blood Cell,CSF 1 /mm3 (1-10)
[2021-07-31 13:51] LABS: Total Cells Counted 2 /mm3
[2021-07-31 14:05] LABS: Total Cells Counted 100
[2021-07-31 14:06] LABS: Band Neutrophils # (Manual) 0.2 K/mm3; Basophils % (Manual) 0 % (0.0-1.8); Platelet Estimate Consistent w Auto; RBC Morphology Normal
[2021-07-31] MEDS: SODIUM CHLORIDE 0.9% 1000 ML 1,000 ML IV SCH ×2 (15:40→23:51)
[2021-08-01] MEDS: CEFEPIME/NS 2 GM/100 ML 2 GM/100 ML BAG IV SCH (03:23)
[2021-08-01] MEDS: HYDROmorphone 1 MG/1 ML INJ IV PRN ×2 (04:15→10:35)
[2021-08-01 07:33] LABS: Basophils % (Auto) 0.3 % (0.0-1.8); Eosinophils # (Auto) 0.2 K/mm3 (0.0-0.4); Eosinophils % (Auto) 1.8 % (0.0-4.3); Hematocrit 39.7 % (35.5-45.6); Hemoglobin 13.2 gm/dl (11.8-15.2); Lymphocytes # (Auto) 1.7 K/mm3 (1.2-5.4); Lymphocytes % (Auto) 17.8 % (13.4-35.0); Mean Corpuscular HGB Conc 33 % (32-34); Mean Corpuscular Volume 90 fl (84-94); Monocytes # (Auto) 1.1 K/mm3 (0.0-0.8); Monocytes % (Auto) 11.7 % (0.0-7.3); Platelet Count 406 K/mm3 (140-440); Red Blood Count 4.43 M/mm3 (3.65-5.03); Red Cell Distribution Width 13.9 % (13.2-15.2)
[2021-08-01 08:00] LABS: BUN/Creatinine Ratio 9; Blood Urea Nitrogen 8 mg/dL (9-20); Calcium 8.6 mg/dL (8.4-10.2); Hemolysis Index 6
[2021-08-01] MEDS: SODIUM CHLORIDE 0.9% 1000 ML 1,000 ML IV SCH (10:41)
[2021-08-01] MEDS: oxyCODONE /ACETAMINOPHEN 5-325MG TAB PO PRN (12:56)
--- NOTE | 2021-08-01 13:02 | Progress Note ---
Assessment and Plan Cultures: 07/26/2021 blood culture: No growth Urine culture: no growth 07/31/2021 CSF: RBC 0, WBC 1, protein 42, glucose 61. Culture: No growth so far A/P: 30-year-old male with history of nephrolithiasis with: #Sepsis, secondary to bilateral hydroureteronephrosis, pyelonephritis: CT without renal stones. Urology evaluated, raise question of possible reflux. #ALONZO: creatinine better. #Headache, neck stiffness: CSF negative for infectious etiology. Recs: -CSF not concerning for meningitis. OK for discharge from ID standpoint on p.o. cefdinir 300 mg twice daily for 10 days -Outpatient urology follow-up due to b/l hydroureteronephrosis, question of possible reflux Will sign off. Genny Walsh MD, FACP, [facility] O: [phone] F: [phone] C: [phone] Subjective Date of service: 08/01/21 Principal diagnosis: uti Interval history: No fever today. Complaining of back pain following LP. Still having headache and neck pain. Objective - Exam Narrative Exam: Physical Exam: Constitutional: Alert, cooperative. No acute distress Head, Ears, Nose: Normocephalic, atraumatic. External ears, nose normal Eyes: Conjunctivae/corneas clear. No icterus. No ptosis. Neck: Supple Cardiovascular: S1, S2 + Respiratory: Good air entry, clear to auscultation bilaterally GI: Soft, non-tender; bowel sounds normal. No peritoneal signs. Musculoskeletal: No pedal edema, no cyanosis. Skin: No rash or abscess Hem/Lymphatic: No palpable cervical or supraclavicular nodes. No lymphangitis Psych: Mood ok. Affect normal Neurological: Awake, alert, oriented. No gross abnormality - Constitutional Vitals: Vital Signs Temp Pulse Resp BP Pulse Ox 98.3 F 64 20 155/102 99 08/01/21 04:19 08/01/21 04:19 08/01/21 10:35 08/01/21 04:19 08/01/21 04:19 Temperature -Last 24 Hours Temperature 98.3 F Temperature 98.8 F - Labs CBC & Chem 7: 08/01/21 06:43 08/01/21 06:43 Labs: Abnormal lab results 07/31/21 08/01/21 08/01/21 Range/Units 10:03 06:43 06:43 [place] % (Auto) 11.7 H (0.0-7.3) % [place] # (Auto) 1.1 H (0.0-0.8) K/mm3 Monocytes % (Manual) 13.0 H (0.0-7.3) % Monocytes # (Manual) 1.1 H (0.0-0.8) K/mm3 BUN 8 L (9-20) mg/dL
[2021-08-01 13:03] VITALS: BP 153/95
--- NOTE | 2021-08-01 13:28 | Progress Note ---
Assessment and Plan Assessment and plan: Sepsis. Patient meets criteria given the leukocytosis, fever and diagnosis of pyelonephritis UTI/pyelonephritis Persistent fevers nephrolithiasis Bilateral hydroureteronephrosis Acute kidney injury Obstructive uropathy 07/27/2021. CT scan reveals bilateral hydroureteronephrosis and perinephric stranding. Urinalysis reveals 153 WBCs. We will follow-up blood and urine cultures. Await urology consultation. Continue IV antibiotics. Patient has a slight elevation of creatinine to 1.4. Continue to monitor BMP closely 07/28/2021. Urology reports patient may have vesicoureteral reflux. Patient currently voiding well without Casanova. Continue IV antibiotics. Patient still with fever spike. We will consult ID for further evaluation. Follow-up blood and urine cultures 07/29/2021. Patient now complains of headache and neck pain. We will arrange for lumbar puncture under fluoroscopy. Check CSF studies. Continue IV antibiotics. Follow-up blood and urine cultures. ID following. 07/30/2021. Patient still complains of headache and neck pain/stiffness but improved. Lumbar puncture under fluoroscopy to be done in a.m. Follow-up CSF studies. Continue IV antibiotics. Follow-up blood and urine cultures. ID following. 07/31/2021. Patient has not ever appeared toxic. However, patient still complains of slight headache and neck stiffness. Patient with persistent fevers. Lumbar puncture under fluoroscopy today per radiology. Follow-up CSF studies. Continue IV antibiotics. Blood cultures no growth x4 days. Urine culture with no growth as well. ID following. 08/01/2021: Patient still complaining of neck pain/lumbar back pain. States he has chills on my encounter. CSF studies sent, not concerned for meningitis per ID. Can d/c home on cefdinir. Hospitalist Physical - Constitutional Vitals: Temp Pulse Resp BP Pulse Ox 98.6 F 62 20 153/95 100 08/01/21 12:59 08/01/21 12:59 08/01/21 12:59 08/01/21 12:59 08/01/21 12:59 General appearance: Present: no acute distress Results - Labs CBC & Chem 7: 08/01/21 06:43 08/01/21 06:43 Labs: Laboratory Last Values WBC 9.4 K/mm3 (4.5-11.0) 08/01/21 06:43 RBC 4.43 M/mm3 (3.65-5.03) 08/01/21 06:43 Hgb 13.2 gm/dl (11.8-15.2) 08/01/21 06:43 Hct 39.7 % (35.5-45.6) 08/01/21 06:43 MCV 90 fl (84-94) 08/01/21 06:43 MCH 30 pg (28-32) 08/01/21 06:43 MCHC 33 % (32-34) 08/01/21 06:43 RDW 13.9 % (13.2-15.2) 08/01/21 06:43 Plt Count 406 K/mm3 (140-440) 08/01/21 06:43 Lymph % (Auto) 17.8 % (13.4-35.0) 08/01/21 06:43 [facility] % (Auto) 11.7 % (0.0-7.3) H 08/01/21 06:43 Eos % (Auto) 1.8 % (0.0-4.3) 08/01/21 06:43 Baso % (Auto) 0.3 % (0.0-1.8) 08/01/21 06:43 Lymph # (Auto) 1.7 K/mm3 (1.2-5.4) 08/01/21 06:43 [facility] # (Auto) 1.1 K/mm3 (0.0-0.8) H 08/01/21 06:43 Eos # (Auto) 0.2 K/mm3 (0.0-0.4) 08/01/21 06:43 Baso # (Auto) 0.0 K/mm3 (0.0-0.1) 08/01/21 06:43 Add Manual Diff Complete 07/31/21 10:03 Total Counted 100 07/31/21 10:03 Seg Neutrophils % 68.4 % (40.0-70.0) 08/01/21 06:43 Seg Neuts % (Manual) 65.0 % (40.0-70.0) 07/31/21 10:03 Band Neutrophils % 2.0 % 07/31/21 10:03 Lymphocytes % (Manual) 18.0 % (13.4-35.0) 07/31/21 10:03 Reactive Lymphs % (Man) 0 % 07/31/21 10:03 Monocytes % (Manual) 13.0 % (0.0-7.3) H 07/31/21 10:03 Eosinophils % (Manual) 2.0 % (0.0-4.3) 07/31/21 10:03 Basophils % (Manual) 0 % (0.0-1.8) 07/31/21 10:03 Metamyelocytes % 0 % 07/31/21 10:03 Myelocytes % 0 % 07/31/21 10:03 Promyelocytes % 0 % 07/31/21 10:03 Blast Cells % 0 % 07/31/21 10:03 Nucleated RBC % Not Reportable 07/31/21 10:03 Seg Neutrophils # 6.4 K/mm3 (1.8-7.7) 08/01/21 06:43 Seg Neutrophils # Man 5.7 K/mm3 (1.8-7.7) 07/31/21 10:03 Band Neutrophils # 0.2 K/mm3 07/31/21 10:03 Lymphocytes # (Manual) 1.6 K/mm3 (1.2-5.4) 07/31/21 10:03 Abs React Lymphs (Man) 0.0 K/mm3 07/31/21 10:03 Monocytes # (Manual) 1.1 K/mm3 (0.0-0.8) H 07/31/21 10:03 Eosinophils # (Manual) 0.2 K/mm3 (0.0-0.4) 07/31/21 10:03 Basophils # (Manual) 0.0 K/mm3 (0.0-0.1) 07/31/21 10:03 Metamyelocytes # 0.0 K/mm3 07/31/21 10:03 Myelocytes # 0.0 K/mm3 07/31/21 10:03 Promyelocytes # 0.0 K/mm3 07/31/21 10:03 Blast Cells # 0.0 K/mm3 07/31/21 10:03 WBC Morphology Not Reportable 07/31/21 10:03 Hypersegmented Neuts Not Reportable 07/31/21 10:03 Hyposegmented Neuts Not Reportable 07/31/21 10:03 Hypogranular Neuts Not Reportable 07/31/21 10:03 Smudge Cells Not Reportable 07/31/21 10:03 Toxic Granulation Not Reportable 07/31/21 10:03 Toxic Vacuolation Not Reportable 07/31/21 10:03 Dohle Bodies Not Reportable 07/31/21 10:03 Pelger-Huet Anomaly Not Reportable 07/31/21 10:03 Dinora Rods Not Reportable 07/31/21 10:03 Platelet Estimate Consistent w auto 07/31/21 10:03 Clumped Platelets Not Reportable 07/31/21 10:03 Plt Clumps, EDTA Not Reportable 07/31/21 10:03 Large Platelets Not Reportable 07/31/21 10:03 Giant Platelets Not Reportable 07/31/21 10:03 Platelet Satelliting Not Reportable 07/31/21 10:03 Plt Morphology Comment Not Reportable 07/31/21 10:03 RBC Morphology Normal 07/31/21 10:03 Dimorphic RBCs Not Reportable 07/31/21 10:03 Polychromasia Not Reportable 07/31/21 10:03 Hypochromasia Not Reportable 07/31/21 10:03 Poikilocytosis Not Reportable 07/31/21 10:03 Anisocytosis Not Reportable 07/31/21 10:03 Microcytosis Not Reportable 07/31/21 10:03 Macrocytosis Not Reportable 07/31/21 10:03 Spherocytes Not Reportable 07/31/21 10:03 Pappenheimer Bodies Not Reportable 07/31/21 10:03 Sickle Cells Not Reportable 07/31/21 10:03 Target Cells Not Reportable 07/31/21 10:03 Tear Drop Cells Not Reportable 07/31/21 10:03 Ovalocytes Not Reportable 07/31/21 10:03 Helmet Cells Not Reportable 07/31/21 10:03 [place] Bodies Not Reportable 07/31/21 10:03 [place] Rings Not Reportable 07/31/21 10:03 [place] Cells Not Reportable 07/31/21 10:03 Bite Cells Not Reportable 07/31/21 10:03 Crenated Cell Not Reportable 07/31/21 10:03 Elliptocytes Not Reportable 07/31/21 10:03 Acanthocytes (Spur) Not Reportable 07/31/21 10:03 Rouleaux Not Reportable 07/31/21 10:03 Hemoglobin C Crystals Not Reportable 07/31/21 10:03 Schistocytes Not Reportable 07/31/21 10:03 Malaria parasites Not Reportable 07/31/21 10:03 Boyd Bodies Not Reportable 07/31/21 10:03 Hem Pathologist Commnt No 07/31/21 10:03 ABG pH 7.428 pH Units (7.350-7.450) 07/28/21 17:45 ABG pCO2 27.7 mm Hg 07/28/21 17:45 ABG pO2 73.6 mm Hg (80.0-90.0) L 07/28/21 17:45 ABG HCO3 17.9 mmol/L (20.0-26.0) L 07/28/21 17:45 ABG O2 Saturation 96.8 % (95.0-99.0) 07/28/21 17:45 ABG O2 Content 18.1 (0.0-44) 07/28/21 17:45 ABG Base Excess -5.0 mmol/L (-2.0-3.0) L 07/28/21 17:45 ABG Hemoglobin 13.5 gm/dl (14.0-18.0) L 07/28/21 17:45 ABG Carboxyhemoglobin 1.1 % (0.0-5.0) 07/28/21 17:45 ABG Methemoglobin 0.7 % (0.0-1.5) 07/28/21 17:45 Oxyhemoglobin 95.1 % (95.0-99.0) 07/28/21 17:45 FiO2 28 % 07/28/21 17:45 Sodium 140 mmol/L (137-145) 08/01/21 06:43 Potassium 3.8 mmol/L (3.6-5.0) 08/01/21 06:43 Chloride 106.2 mmol/L (98-107) 08/01/21 06:43 Carbon Dioxide 23 mmol/L (22-30) 08/01/21 06:43 Anion Gap 15 mmol/L 08/01/21 06:43 BUN 8 mg/dL (9-20) L 08/01/21 06:43 Creatinine 0.9 mg/dL (0.8-1.3) 08/01/21 06:43 Estimated GFR > 60 ml/min 08/01/21 06:43 BUN/Creatinine Ratio 9 % 08/01/21 06:43 Glucose 94 mg/dL (75-100) 08/01/21 06:43 Lactic Acid 1.40 mmol/L (0.7-2.0) 07/27/21 01:53 Calcium 8.6 mg/dL (8.4-10.2) 08/01/21 06:43 Total Bilirubin 0.60 mg/dL (0.1-1.2) 07/26/21 17:05 AST 23 units/L (5-40) 07/26/21 17:05 ALT 20 units/L (7-56) 07/26/21 17:05 Alkaline Phosphatase 75 units/L (35-129) 07/26/21 17:05 C-Reactive Protein 25.90 mg/dL (0.00-1.30) H 07/26/21 17:05 Total Protein 7.1 g/dL (6.3-8.2) 07/26/21 17:05 Albumin 4.2 g/dL (3.9-5) 07/26/21 17:05 Albumin/Globulin Ratio 1.4 % 07/26/21 17:05 Urine Color Yellow (Yellow) 07/26/21 Unknown Urine Turbidity Slightly-cloudy (Clear) 07/26/21 Unknown Urine pH 7.0 (5.0-7.0) 07/26/21 Unknown Ur Specific [place] 1.004 (1.003-1.030) 07/26/21 Unknown Urine Protein 30 mg/dl mg/dL (Negative) 07/26/21 Unknown Urine Glucose (UA) Neg mg/dL (Negative) 07/26/21 Unknown Urine Ketones Neg mg/dL (Negative) 07/26/21 Unknown Urine Blood Sm (Negative) 07/26/21 Unknown Urine Nitrite Neg (Negative) 07/26/21 Unknown Urine Bilirubin Neg (Negative) 07/26/21 Unknown Urine Urobilinogen < 2.0 mg/dL (<2.0) 07/26/21 Unknown Ur Leukocyte Esterase Lg (Negative) 07/26/21 Unknown Urine WBC (Auto) 153.0 /HPF (0.0-6.0) H 07/26/21 Unknown Urine RBC (Auto) 2.0 /HPF (0.0-6.0) 07/26/21 Unknown U Epithel Cells (Auto) 1.0 /HPF (0-13.0) 07/26/21 Unknown Urine Mucus Few /HPF 07/26/21 Unknown CSF Appearance Clear 07/31/21 09:50 CSF Color Colorless 07/31/21 09:50 CSF WBC 1 /mm3 (1-10) 07/31/21 09:50 CSF RBC 0 /mm3 (0-0) 07/31/21 09:50 CSF Seg Neutrophils Not Reportable 07/31/21 09:50 CSF Lymphocytes % Not Reportable 07/31/21 09:50 CSF Reactive Lymphs Not Reportable 07/31/21 09:50 CSF Monocytes % 100 % (15-45) 07/31/21 09:50 CSF Eosinophils % Not Reportable 07/31/21 09:50 CSF Basophils Not Reportable 07/31/21 09:50 CSF Pathologist Review C 07/31/21 09:50 CSF Glucose 61 mg/dL 07/31/21 09:50 CSF Total Protein 42 mg/dL 07/31/21 09:50 Blood Type A POSITIVE 07/26/21 20:20 Antibody Screen Negative 07/26/21 20:20 Microbiology: Microbiology 07/31/21 09:50 Cerebral Spinal Fluid CSF Culture - Preliminary 07/26/21 17:05 Peripheral/Venous Blood Culture - Final NO GROWTH AFTER 5 DAYS 07/26/21 17:20 Peripheral/Venous Blood Culture - Final NO GROWTH AFTER 5 DAYS Casanova/IV: Voiding Method Urinal Active Medications - Current Medications Current Medications: Generic Name Dose Route Start Last Admin Trade Name Freq PRN Reason Stop Dose Admin Acetaminophen 650 mg 07/26/21 20:04 07/31/21 00:04 Acetaminophen 325 Mg Tab PO 650 mg Q4H PRN Administration Pain MILD(1-3)/Fever >100.5/ALATORRE Albuterol 2.5 mg 07/26/21 20:04 07/28/21 14:21 Albuterol 2.5 Mg/3 Ml Nebu IH 2.5 mg Q4HRT PRN Administration Shortness Of Breath Hydralazine HCl 10 mg 07/30/21 23:52 07/31/21 00:04 Hydralazine 20 Mg/1 Ml Inj IV 10 mg Q4HR PRN Administration Blood Pressure Hydromorphone HCl 0.25 mg 07/26/21 20:04 08/01/21 10:35 Hydromorphone 1 Mg/1 Ml Inj IV 0.25 mg Q4H PRN Administration Pain , Severe (7-10) Sodium Chloride 1,000 mls @ 135 mls/hr 07/26/21 20:15 08/01/21 10:41 Nacl 0.9% 1000 Ml IV 135 mls/hr DIRECT CJ Administration Cefepime HCl 2 gm in 100 mls @ 200 mls/hr 07/29/21 04:00 08/01/21 03:23 Cefepime/Ns 2 Gm/100 Ml IV 100 mls/hr Q12H CJ Administration Protocol Ondansetron HCl 4 mg 07/26/21 20:04 07/27/21 22:41 Ondansetron 4 Mg/2 Ml Inj IV 4 mg Q8H PRN Administration Nausea And Vomiting Oxycodone/Acetaminophen 1 tab 07/26/21 20:04 08/01/21 12:56 Oxycodone /Acetaminophen 5-325mg Tab PO 1 tab Q6H PRN Administration Pain, Moderate (4-6) Sodium Chloride 10 ml 07/26/21 22:00 08/01/21 10:36 Sodium Chloride 0.9% 10 Ml Flush Syringe IV 10 ml BID CJ Administration Sodium Chloride 10 ml 07/26/21 20:04 07/30/21 05:32 Sodium Chloride 0.9% 10 Ml Flush Syringe IV 10 ml PRN PRN Administration LINE FLUSH
--- NOTE | 2021-08-01 16:33 | Discharge Summary ---
Providers - Providers Date of Admission: 07/26/21 20:04 Date of discharge: 08/01/21 Attending physician: HARIS RUBIO MD 07/28/21 07:55 Consult to Physician [CONS] Routine Comment: Consulting Provider: TASHA STARKS Physician Instructions: Reason For Exam: sepsis, UTI Primary care physician: [employer] Hospitalization Reason for admission: hurt back Condition: Stable Hospital course: History of present illness (per admitting doctor): 30 YO Male with Nephrolithiasis presents to ED for evaluation. Patient reports "my back hurts". Patient states that he has experienced sudden onset of lower back pain over the past 1 day with persistent symptoms over the same timeframe. Patient knowledges fever to 103 degrees Fahrenheit. Patient also acknowledges interruptions in urine stream. Patient transported to [facility] via private vehicle for further care and evaluation of the aforementioned symptoms. The patient was seen and evaluated in the emergency department. All lab and imaging studies reviewed. Patient found to have UTI complicated by sepsis. Patient underwent CT scan and was found to have evidence of pyelonephritis with hydronephrosis without evidence of obstructing kidney stone. Urology team consulted in ED. Patient admitted to medical floor and initiated on sepsis protocol. Patient knowledges fever but denies chills, chest pain, palpitation, adductive cough, skin rash, recent contact, hematuria, no exposure to COVID-19. No prior admission for review. No medication listed at time of admission for reconciliation. Advanced care planning conducted in ED. Sepsis. Patient meets criteria given the leukocytosis, fever and diagnosis of pyelonephritis UTI/pyelonephritis Persistent fevers nephrolithiasis Bilateral hydroureteronephrosis Acute kidney injury Obstructive uropathy 07/27/2021. CT scan reveals bilateral hydroureteronephrosis and perinephric stranding. Urinalysis reveals 153 WBCs. We will follow-up blood and urine cultures. Await urology consultation. Continue IV antibiotics. Patient has a slight elevation of creatinine to 1.4. Continue to monitor BMP closely 07/28/2021. Urology reports patient may have vesicoureteral reflux. Patient currently voiding well without Casanova. Continue IV antibiotics. Patient still with fever spike. We will consult ID for further evaluation. Follow-up blood and urine cultures 07/29/2021. Patient now complains of headache and neck pain. We will arrange for lumbar puncture under fluoroscopy. Check CSF studies. Continue IV antibiotics. Follow-up blood and urine cultures. ID following. 07/30/2021. Patient still complains of headache and neck pain/stiffness but improved. Lumbar puncture under fluoroscopy to be done in a.m. Follow-up CSF studies. Continue IV antibiotics. Follow-up blood and urine cultures. ID following. 07/31/2021. Patient has not ever appeared toxic. However, patient still complains of slight headache and neck stiffness. Patient with persistent fevers. Lumbar puncture under fluoroscopy today per radiology. Follow-up CSF studies. Continue IV antibiotics. Blood cultures no growth x4 days. Urine culture with no growth as well. ID following. 08/01/2021: Patient still complaining of neck pain/lumbar back pain. States he has chills on my encounter. CSF studies sent, not concerned for meningitis per ID. Can d/c home on cefdinir. Rx for cefdinir and percocet given. Advised to follow up OP with primary care physician. Disposition: 01 HOME / SELF CARE / HOMELESS Final Discharge Diagnosis (Prints w/discharge instructions): sepsis, pylonephritis Time spent for discharge: 35 Core Measure Documentation - Palliative Care Palliative Care/ Comfort Measures: Not Applicable - Core Measures Any of the following diagnoses?: none Exam - Physical Exam Narrative exam: Constitutional: Alert, cooperative. No acute distress Head, Ears, Nose: Normocephalic, atraumatic. External ears, nose normal Eyes: Conjunctivae/corneas clear. No icterus. No ptosis. Neck: Supple Cardiovascular: S1, S2 + Respiratory: Good air entry, clear to auscultation bilaterally GI: Soft, non-tender; bowel sounds normal. No peritoneal signs. Musculoskeletal: No pedal edema, no cyanosis. Skin: No rash or abscess Hem/Lymphatic: No palpable cervical or supraclavicular nodes. No lymphangitis Psych: Mood ok. Affect normal Neurological: Awake, alert, oriented. No gross abnormality - Constitutional Vitals: Temp Pulse Resp BP Pulse Ox 98.6 F 62 20 153/95 100 08/01/21 12:59 08/01/21 12:59 08/01/21 12:59 08/01/21 12:59 08/01/21 12:59 Plan Follow up with: LADARIUS RYDER MD [Staff Physician] - 7 Days PRIMARY CARE, [Primary Care Provider] - 7 Days Prescriptions: Cefdinir 300 mg PO BID 10 Days #20 cap oxyCODONE /ACETAMINOPHEN [Percocet 5/325] 1 tab PO Q8HR PRN 3 Days #9 tablet PRN Reason: Pain
== END 2021-08-01 17:14 | disposition home or self-care (01) | DRG 872 ==
LOC: ED 14:22 → 3A 20:04
PROVIDERS: ADMIT Internal Medicine; ATTEND Internal Medicine
PROC: 4A033R1 Measurement of Arterial Saturation, Peripheral, Percutaneous Approach (ICD-10-PCS; 2021-07-28)
PROC: 009U3ZZ Drainage of Spinal Canal, Percutaneous Approach (ICD-10-PCS; principal; 2021-07-31)
PROC: B01B1ZZ Fluoroscopy of Spinal Cord using Low Osmolar Contrast (ICD-10-PCS; 2021-07-31)
DX: A41.89 Other specified sepsis (principal); N13.6 Pyonephrosis; N17.9 Acute kidney failure, unspecified
CPT/HCPCS: 36415; 36600; 62270; 62328; 71045; 72100; 74176; 80048; 80053; 81001; 82140; 82803; 82947; 84160; 85007; 85025; 86140; 86592; 86850; 86900; 86901; 87040; 87086; 87116; 87498; 87799; 89051; 94640; 94760; G0378; J0360; J0692; J0696; J1170; J2405; J7030